=== PATIENT | female | born 1935 | race Caucasian/White ===

== ENCOUNTER 2017-08-11 14:25 | Emergency (ER) | payer OTHER, MEDICAID ==
[2017-08-11] MEDS ORDERED: PHENYLEPHRINE 0.25% NASAL 15 ML SPRAY ONE (14:28)
[2017-08-11 14:35] VITALS: TEMP 97.7
--- NOTE | 2017-08-11 14:35 | EDPHY ---
H & P HPI/ROS: Chief Complaint: Epistaxis HPI: 81-year-old woman with a history of lung cancer on chronic oxygen use from the [facility] started having a nosebleed 4 hr ago. She has had persistent bleeding without control since that time. She does state that she does use a humidifier with her nasal cannula. Denies any foreign body insertion into her nostril. Bleeding is primarily coming out of the front of her nose, she does not believe she is swallowing a lot of blood. Does not have a history of epistaxis in the past. ROS: 10 point Review of Systems is negative except as noted in the HPI. PMH: Lung cancer, oxygen dependent Social History: No smoking, no alcohol, no recreational drug use Family History: non-contributory Physical Exam: Gen: Awake, Alert, No Distress HEENT: Nose: Nasal clamp in place, dry blood in bilateral nares. Eyes: PERRLA, EOMI Mouth: Moist mucosa Neck: Supple, no JVD Ext: no edema, non-tender Skin: no rash Neuro: CN II-XII intact, Sensation grossly intact, Strength 5/5 in bilateral upper and lower extremities Constitutional: Initial Vital Signs Temperature (C) 36.5 C 08/11/17 14:33 Heart Rate 107 H 08/11/17 14:33 Respiratory Rate 22 H 08/11/17 14:33 Blood Pressure 122/76 H 08/11/17 14:33 O2 Sat (%) 68 L 08/11/17 14:33 O2 Delivery Mode Room Air O2 (L/minute) 6 Allergies/Adverse Reactions: paclitaxel [From Taxol] Allergy (Verified 08/11/17 14:33) Home Medications: Medication Instructions Recorded ASPIRIN 08/11/17 Prednisone 08/11/17 Medical Decision Making Procedures: Procedure: Epistaxis control. After verbal consent was obtained, the patient was anesthetized with 4% lidocaine and Lawson-Synephrine. The anterior epistaxis was identified. The patient was treated with silver nitrate cautery. Following the procedure the patient was re-examined and the bleeding was well controlled. The patient tolerated the procedure well. The procedure was performed by myself. Departure - Departure Disposition: Home, Routine, Self-Care Clinical Impression: Acute anterior epistaxis Condition: Good Instructions: Nosebleed (ED) Additional Instructions: Make sure to outweighs used humidified oxygen with your nasal cannula. Follow up with Ear Nose and Throat doctor in 2-3 days for further evaluation. Referrals: Layo Mckeon MD [Medical Doctor] - As per Instructions
[2017-08-11] MEDS ORDERED: LIDOCAINE HCL 4% TOPICAL SOLN 50ML ONE (14:40)
[2017-08-11] MEDS ORDERED: SILVER NITRATE APPLICATOR 1 APPL TP ONE (14:48)
[2017-08-11 15:05] VITALS: RESP 18
[2017-08-11 16:21] VITALS: BP 145/92; PULSE 97; O2SAT 99
--- NOTE | 2017-08-11 16:30 | ASMTLACE ---
DYLAN Acuity / Level of Answers: No Care: Did the patient have an inpatient admission? Comorbidities - select Answers: Any tumor (including all that apply lymphoma or leukemia) # of Emergency department Answers: 1-2 visits in the last 6 months Score: 3 Date Signed: 08/11/2017 04:29 PM Electronically Signed By:Lashell Valles RN
== END 2017-08-11 17:20 | disposition home or self-care (01) ==
PROC: 095KXZZ Destruction of Nasal Mucosa and Soft Tissue, External Approach (ICD-10-PCS; principal; 2017-08-11)
DX: R04.0 Epistaxis (principal); Z79.82 Long term (current) use of aspirin; Z85.118 Personal history of other malignant neoplasm of bronchus and lung

== ENCOUNTER 2017-08-15 02:52 | Inpatient (IN) | payer OTHER, MEDICAID ==
[2017-08-15] MEDS ORDERED: IPRATROPIUM/ALBUTEROL 3 ML DEYVIAL ONE (02:57)
[2017-08-15] MEDS ORDERED: IPRATROPIUM/ALBUTEROL 3 ML DEYVIAL IH ONE (02:59)
[2017-08-15] MEDS ORDERED: NS 500 ML IV ONE (03:01)
--- NOTE | 2017-08-15 03:06 | EDPHY ---
H & P Stated Complaint: Shortness of breath HPI/ROS: HPI The patient presents brought in by ambulance for shortness of breath. She comes in from [facility]. She has a history of non-small cell lung cancer, COPD, requiring about 6 L of O2 via nasal cannula. She was seen in the emergency department a few days ago for epistaxis likely related to her oxygen and has not been wearing it continuously over the last few days. She was noticed to have shortness of breath tonight despite being on 6 L of nasal cannula and was brought into the emergency department. She now is feeling very short of breath and is complaining of chest pain. REVIEW OF SYSTEMS Constitutional: No fever, no chills. Eyes: No discharge. ENT: No sore throat. Cardiovascular: No chest pain, no palpitations. Respiratory: No cough, no shortness of breath. Gastrointestinal: No abdominal pain, no vomiting. Genitourinary: No hematuria. Musculoskeletal: No back pain. Skin: No rashes. Neurological: No headache. PMHx: Non-small cell lung cancer, on Nivolimab until she developed pneumonitis on this, COPD on 6 L nasal cannula lately, resides at [facility] Soc Hx: Resides at [facility], family lives out of town PHYSICAL General Appearance: Alert, in severe respiratory distress Eyes: Pupils equal and round no pallor or injection ENT, Mouth: Mucous membranes dry Respiratory: Tachypneic, retracting, diminished breath sounds throughout right lung field Cardiovascular: Tachycardic rate and regular rhythm Gastrointestinal: Abdomen is soft and non-tender, no masses, bowel sounds normal Neurological: A&O, moves all extremities Skin: Warm and dry, no rashes Musculoskeletal: Neck is supple non tender Extremities: symmetrical, full range of motion Psychiatric: there is no agitation Source: Patient, EMS Exam Limitations: Physical impairment - Medical/Surgical History Hx Asthma: No Hx Chronic Respiratory Disease: Yes Hx Diabetes: No Hx Cardiac Disease: No Hx Renal Disease: No Hx Cirrhosis: No Hx Alcoholism: No Hx HIV/AIDS: No Hx Splenectomy or Spleen Trauma: No Other PMH: lung cancer, dysphagia, cognitive communication deficit - Social History Smoking Status: Former smoker Constitutional: Initial Vital Signs Temperature (C) 36.5 C 08/15/17 03:00 Heart Rate 122 H 08/15/17 03:00 Respiratory Rate 24 H 08/15/17 03:00 Blood Pressure 172/137 H 08/15/17 03:00 O2 Sat (%) 75 L 08/15/17 03:00 O2 Delivery Mode Bi-Pap O2 (L/minute) 15 Allergies/Adverse Reactions: paclitaxel [From Taxol] Allergy (Verified 08/15/17 02:57) Home Medications: Medication Instructions Recorded ASPIRIN 08/11/17 Prednisone 08/11/17 Medical Decision Making - Diagnostics EKG Interpretation: EKG: Complete interpretation has been separately recorded in the [facility] archive. Summary impression: Sinus tachycardia, right axis deviation Imaging Results: Chest x-ray one view demonstrates right-sided pneumothorax, patchy infiltrates bilaterally, interpreted by me, radiology interpretation pending. Repeat chest x-ray shows re-expansion of right lung. CT scan of chest with IV contrast demonstrates small residual pneumothorax, bilateral infiltrates, discussed with Dr. Keys of Radiology. Imaging: Discussed imaging studies w/ house calls nurse Radiologist, I viewed and interpreted images myself Differential Diagnosis: This is an 81-year-old female who presents brought in by ambulance from [facility] in respiratory distress and hypoxia. Past medical history includes COPD on 6 L home O2, non-small cell lung cancer, currently not on chemotherapy that I can tell. On arrival, her sats are in the low 80s, she is tachypneic and uncomfortable appearing. She is started on supplemental oxygen via facemask with nebulizer treatments without much improvement in her symptoms. She was transitioned to BiPAP. She was given steroids and additional nebulizer treatments. Chest x-ray was performed and demonstrates 50-60% right-sided pneumothorax. Because of this, I consulted with Dr. Mathews of General surgery who came to the emergency department emergently placed a Heimlich valve chest tube with improvement in the patient's symptoms. CT scan was performed shortly thereafter which demonstrates bilateral infiltrates and small residual pneumothorax. Labs demonstrated elevated white blood cell count and given these infiltrates we will treat her for healthcare associated pneumonia with cefepime and vancomycin. PCO2 is very high at 70, this is likely related to her COPD and respiratory distress. After the chest tube was placed, we were able to transition the patient back to her usual 6 L of oxygen with sats in the low 90s. She is no longer tachypneic and feeling much better able to speak short sentences. Critical Care Time: CRITICAL CARE Critical care time spent by me, Dr. Villeda, exclusively with this patient was 45 minutes, exclusive of PA time and exclusive of procedures. The organ system at risk was respiratory and I gave IV fluids, antibiotics, nebulizer treatments , BiPAP, consulted with surgery to placed chest tube, transferred patient to the ICU to prevent worsening of the patients condition. - Data Points Laboratory Results: Laboratory Results 08/15/17 03:10 08/15/17 03:10 08/15/17 08/15/17 08/15/17 03:40 03:30 03:10 WBC RBC Hgb Hct MCV MCH MCHC RDW Plt Count MPV Neut % (Auto) Lymph % (Auto) [place] % (Auto) Eos % (Auto) Baso % (Auto) Nucleat RBC Rel Count Absolute Neuts (auto) Absolute Lymphs (auto) Absolute Monos (auto) Absolute Eos (auto) Absolute Basos (auto) Absolute Nucleated RBC Immature Gran % Seg Neutrophils % Band Neutrophils % Lymphocytes % Monocytes % Eosinophils % Metamyelocytes % Immature Gran # Absolute Seg Neuts Absolute Band Neuts Absolute Lymphocytes Absolute Monocytes Absolute Eosinophils Absolute Metamyelocyte Atypical Lymphocytes Platelet Estimate Smear Review By Puncture Site RIGHT RADIAL Patient Temperature 36.5 DEGREES DEGREES pCO2 74 mmHg H* mmHg (34-38) pO2 83 mmHg H mmHg (65-75) Total CO2 36 mEq/L H mEq/L (23-27) ABG pH 7.28 L (7.35-7.45) ABG PO2/FiO2 Ratio 83 RATIO RATIO ABG HCO3 34 mEq/L H mEq/L (22-26) ABG O2 Saturation 94 % % (92-95) ABG Base Excess 4.8 mEq/L H mEq/L (-2.5-2.5) ABG Lactic Acid 0.8 mmol/L mmol/L (0.5-1.6) O2 Concentration % 100 % % (0-100) Expiratory Pressure 6 Inspiratory Pressure 16 Mode BiPAP YES Sodium 141 mEq/L mEq/L (135-145) Potassium 4.5 mEq/L mEq/L (3.5-5.2) Chloride 99 mEq/L mEq/L (97-110) Carbon Dioxide 35 mEq/l H mEq/l (22-31) Anion Gap 7 mEq/L L mEq/L (8-16) BUN 23 mg/dL mg/dL (7-23) Creatinine 0.8 mg/dL mg/dL (0.6-1.0) Estimated GFR > 60 Glucose 134 mg/dL H mg/dL (70-100) Calcium 10.0 mg/dL mg/dL (8.5-10.4) Troponin I < 0.012 ng/mL ng/mL (0.000-0.034) NT-Pro-B Natriuret Pep 174 pg/mL pg/mL (0-450) Nasal Influenza A PCR NEGATIVE FOR FLU A (NEGATIVE) Nasal Influenza B PCR NEGATIVE FOR FLU B (NEGATIVE) RSV (PCR) NEGATIVE FOR RSV (NEGATIVE) 08/15/17 03:10 WBC 20.67 10^3/uL H 10^3/uL (3.80-9.50) RBC 4.33 10^6/uL 10^6/uL (4.18-5.33) Hgb 12.8 g/dL g/dL (12.6-16.3) Hct 41.1 % % (38.0-47.0) MCV 94.9 fL fL (81.5-99.8) MCH 29.6 pg pg (27.9-34.1) MCHC 31.1 g/dL L g/dL (32.4-36.7) RDW 14.3 % % (11.5-15.2) Plt Count 320 10^3/uL 10^3/uL (150-400) MPV 9.4 fL fL (8.7-11.7) Neut % (Auto) Not Reported Lymph % (Auto) Not Reported [place] % (Auto) Not Reported Eos % (Auto) Not Reported Baso % (Auto) Not Reported Nucleat RBC Rel Count 0.0 % % (0.0-0.2) Absolute Neuts (auto) Not Reported Absolute Lymphs (auto) Not Reported Absolute Monos (auto) Not Reported Absolute Eos (auto) Not Reported Absolute Basos (auto) Not Reported Absolute Nucleated RBC 0.00 10^3/uL 10^3/uL (0-0.01) Immature Gran % Not Reported Seg Neutrophils % 54 % % Band Neutrophils % 13 % % Lymphocytes % 20 % % Monocytes % 10 % % Eosinophils % 2 % % Metamyelocytes % 1 % % Immature Gran # Not Reported Absolute Seg Neuts 11.16 10^/uL H 10^/uL (1.70-6.50) Absolute Band Neuts 2.69 10^3/uL H 10^3/uL (0.00-0.70) Absolute Lymphocytes 4.13 10^3/uL H 10^3/uL (1.00-3.00) Absolute Monocytes 2.07 10^3/uL H 10^3/uL (0.30-0.80) Absolute Eosinophils 0.41 10^3/uL H 10^3/uL (0.03-0.40) Absolute Metamyelocyte 0.21 10^3/mL H 10^3/mL (0.00-0.00) Atypical Lymphocytes 1+ H Platelet Estimate ADEQUATE (ADEQ) Smear Review By Pending Puncture Site Patient Temperature pCO2 pO2 Total CO2 ABG pH ABG PO2/FiO2 Ratio ABG HCO3 ABG O2 Saturation ABG Base Excess ABG Lactic Acid O2 Concentration % Expiratory Pressure Inspiratory Pressure Mode BiPAP Sodium Potassium Chloride Carbon Dioxide Anion Gap BUN Creatinine Estimated GFR Glucose Calcium Troponin I NT-Pro-B Natriuret Pep Nasal Influenza A PCR Nasal Influenza B PCR RSV (PCR) Medications Given: Vancomycin/Sodium Chloride (Vancomycin 1 Gm (Premix)) 250 mls @ 250 mls/hr IV EDNOW ONE PRN Reason: Protocol Stop: 08/15/17 05:38 Last Admin: 08/15/17 04:55 Dose: 250 mls Discontinued Medications Albuterol/Ipratropium (Duoneb) 3 ml IH EDNOW ONE Stop: 08/15/17 03:00 Last Admin: 08/15/17 03:00 Dose: 3 ml Sodium Chloride (Ns) 500 mls @ 1,000 mls/hr IV EDNOW ONE PRN Reason: Protocol Stop: 08/15/17 03:30 Last Admin: 08/15/17 03:32 Dose: 500 mls Cefepime HCl 2 gm/ Sterile (Water) 12.5 mls @ 150 mls/hr IV EDNOW ONE PRN Reason: Protocol Stop: 08/15/17 03:15 Last Admin: 08/15/17 04:03 Dose: 12.5 mls Sodium Chloride (Ns) 1,000 mls @ 0 mls/hr IV EDNOW ONE; Wide Open PRN Reason: Protocol Stop: 08/15/17 04:27 Last Admin: 08/15/17 04:31 Dose: 1,000 mls Methylprednisolone Sodium Succinate (Solu-Medrol) 125 mg IVP EDNOW ONE Stop: 08/15/17 03:13 Last Admin: 08/15/17 03:25 Dose: 125 mg Departure - Departure Disposition: [facility] Inpatient Acute Clinical Impression: Chronic obstructive pulmonary disease with acute exacerbation, Pneumothorax on right, Non-small cell cancer of left lung Pneumonia Qualifiers: Pneumonia type: due to unspecified organism Laterality: bilateral Lung location : unspecified part of lung Qualified Code(s): J18.9 - Pneumonia, unspecified organism Condition: Critical Referrals: ALETA LARIOS [Other] - As per Instructions
[2017-08-15] MEDS ORDERED: CEFEPIME HCL 2 GM in STERILE WATER INJ 12.5 ML IV ONE (03:11)
[2017-08-15] MEDS ORDERED: methylPREDNISolone SOD SUCC 125 MG/2 ML VIAL IVP ONE (03:12)
--- NOTE | 2017-08-15 03:17 | CPEKG ---
Heart Rate: 120 RR Interval: 500 P-R Interval: 164 QRSD Interval: 94 QT Interval: 296 QTC Interval: 419 P [place]: 89 QRS [place]: 81 T Wave [place]: 103 EKG Severity - ABNORMAL ECG - EKG Impression: SINUS TACHYCARDIA EKG Impression: BORDERLINE RIGHT AXIS DEVIATION EKG Impression: CONSIDER LEFT VENTRICULAR HYPERTROPHY EKG Impression: ANTERIOR Q WAVES, POSSIBLY DUE TO LVH Electronically Signed By: Li Villeda 15-Aug-2017 06:43:02
[2017-08-15 03:19] LABS: PLATELET COUNT 320 10^3/uL (150-400)
[2017-08-15] MEDS ORDERED: IOPAMIDOL (ISOVUE-300) 100 ML BTL ONE (03:37)
[2017-08-15] MEDS ORDERED: HYDROmorphONE/DILAUDID 1 MG/ML INJ IVP ONE (04:12)
[2017-08-15] MEDS ORDERED: NS 1,000 ML IV ONE (04:26)
--- NOTE | 2017-08-15 04:34 | POSTOPPROG ---
Post Op Note Date of Operation: 08/15/17 Surgeon: Daniel Mathews Anesthesia: Local (Specify) (1% lidocaine, 8cc) Pre-op Diagnosis: spontaneous right PTX, 60% with low Sats Post-op Diagnosis: spontaneous right PTX with re-expansion by CXR Indication: spontaneous right PTX, 60% with low Sats Procedure: placement of a right pneumathorax tube Findings: spontaneous right PTX, 60% with low Sats Inf/Abcess present in the surg proc area at time of surgery?: No EBL: Minimal Complications: none Specimen(s): none
[2017-08-15] MEDS ORDERED: VANCOMYCIN HCL/NORMAL SALINE 250 ML IV ONE (04:39)
[2017-08-15] MEDS ORDERED: ACETAMINOPHEN 325 MG TAB PO PRN ×2 (04:39→11:30)
[2017-08-15] MEDS ORDERED: ONDANSETRON DISINTEGRATING 4 MG TAB PO PRN (04:39)
[2017-08-15] MEDS ORDERED: ONDANSETRON 4 MG/2 ML VIAL IVP PRN (04:39)
[2017-08-15] MEDS ORDERED: ALBUTEROL 3 ML DEYVIAL IH PRN (04:39)
--- NOTE | 2017-08-15 05:25 | GOP ---
[f rep st] OPERATIVE REPORT DATE OF OPERATION: SURGEON: Daniel Mathews MD PREOPERATIVE DIAGNOSIS: 60% right pneumothorax, spontaneous. POSTOPERATIVE DIAGNOSIS: 60% right pneumothorax, spontaneous. Complete re- expansion of the lung. PROCEDURE PERFORMED: Placement of a pneumothorax tube, right chest over the 2nd rib. FINDINGS: 60% right pneumothorax, spontaneous. Complete re-expansion of the lung. DESCRIPTION OF PROCEDURE: The patient was placed in a sitting position at approximately 45 degrees. The right chest was anteriorly carefully prepped and draped. Note that she is requiring CPAP to oxygenate marginally. This was done as an emergent procedure. A sterile field is developed. The skin is anesthetized with 1% Xylocaine over the 2nd rib. A tract is continued over the surface of the 2nd rib and the tract is anesthetized again with 1% Xylocaine. The skin is sharply incised. A pneumothorax tube was carefully advanced over the rib. It is connected to a stopcock and the Heimlich valve setup. It was sutured to the skin level with a 2-0 silk suture. A second suture was used to the anterior chest wall. A sterile dressing using Tegaderm was placed. A chest x-ray shows re-expansion of the lung. She will go to CAT scan for followup film to address her other pulmonary pathology. Required oxygen support is greatly diminished at this time. A CT is pending to elucidate the rest of her pulmonary pathology. /[id number]/MODL MTDD
--- NOTE | 2017-08-15 05:26 | PDGENHP ---
History and Physical - Chief Complaint Dyspnea - History of Present Illness 81 yo F w/ hx of COPD and NSCLC presents from [facility] via EMS with shortness of breath. Patient states that she was in her usual state of health until tonight when she was woken from sleep by acute shortness of breath and R- sided chest pain. EMS was called and she was noted to be hypoxic while on her baseline 6 L/min via NC. Upon arrival in the ED she was found to have a R-sided pneumothorax as well as diffuse bilateral infiltrates. A right sided chest tube was placed with improvement in symptoms. Patient is currently only complaining of some pain at the site of the chest tube. At this time she is stable on her home 6 L/min. She denies any symptoms of infection prior to tonight. History Information - Allergies/Home Medication List Allergies/Adverse Reactions: paclitaxel [From Taxol] Allergy (Verified 08/15/17 02:57) Home Medications: ASPIRIN 08/11/17 [Last Taken Unknown] Prednisone 08/11/17 [Last Taken Unknown] I have personally reviewed and updated: family history, medical history (3) - Past Medical History cancer (NSCLC), COPD - Family History Additional family history: Asked, denies - Social History Smoking Status: Former smoker Review of Systems Review of Systems: ROS: 10pt was reviewed & negative except for what was stated in HPI & below Physical Exam Physical Exam: Temp Pulse Resp BP Pulse Ox 36.6 C 110 H 18 113/68 93 08/15/17 05:15 08/15/17 05:15 08/15/17 05:15 08/15/17 05:15 08/15/17 05:15 O2 (L/minute) 6 FIO2 (%) 100 Constitutional: no apparent distress, chronically ill appearing Eyes: PERRL, EOMI Ears, Nose, Mouth, Throat: moist mucous membranes, no oral mucosal ulcers Cardiovascular: regular rate and rhythym, systolic murmur Respiratory: no respiratory distress, inspiratory crackles, rhonchi Gastrointestinal: normoactive bowel sounds, soft, non-tender abdomen Skin: warm, normal color Musculoskeletal: full muscle strength, no muscle tenderness Neurologic: sensation intact bilaterally, CN II-XII Intact Psychiatric: interacting appropriately, not anxious Lab Data & Imaging Review 08/15/17 03:10 08/15/17 03:10 WBC 20.67 10^3/uL (3.80-9.50) H 08/15/17 03:10 RBC 4.33 10^6/uL (4.18-5.33) 08/15/17 03:10 Hgb 12.8 g/dL (12.6-16.3) 08/15/17 03:10 Hct 41.1 % (38.0-47.0) 08/15/17 03:10 MCV 94.9 fL (81.5-99.8) 08/15/17 03:10 MCH 29.6 pg (27.9-34.1) 08/15/17 03:10 MCHC 31.1 g/dL (32.4-36.7) L 08/15/17 03:10 RDW 14.3 % (11.5-15.2) 08/15/17 03:10 Plt Count 320 10^3/uL (150-400) 08/15/17 03:10 MPV 9.4 fL (8.7-11.7) 08/15/17 03:10 Neut % (Auto) Not Reported 08/15/17 03:10 Lymph % (Auto) Not Reported 08/15/17 03:10 [place] % (Auto) Not Reported 08/15/17 03:10 Eos % (Auto) Not Reported 08/15/17 03:10 Baso % (Auto) Not Reported 08/15/17 03:10 Nucleat RBC Rel Count 0.0 % (0.0-0.2) 08/15/17 03:10 Absolute Neuts (auto) Not Reported 08/15/17 03:10 Absolute Lymphs (auto) Not Reported 08/15/17 03:10 Absolute Monos (auto) Not Reported 08/15/17 03:10 Absolute Eos (auto) Not Reported 08/15/17 03:10 Absolute Basos (auto) Not Reported 08/15/17 03:10 Absolute Nucleated RBC 0.00 10^3/uL (0-0.01) 08/15/17 03:10 Immature Gran % Not Reported 08/15/17 03:10 Seg Neutrophils % 54 % 08/15/17 03:10 Band Neutrophils % 13 % 08/15/17 03:10 Lymphocytes % 20 % 08/15/17 03:10 Monocytes % 10 % 08/15/17 03:10 Eosinophils % 2 % 08/15/17 03:10 Metamyelocytes % 1 % 08/15/17 03:10 Immature Gran # Not Reported 08/15/17 03:10 Absolute Seg Neuts 11.16 10^/uL (1.70-6.50) H 08/15/17 03:10 Absolute Band Neuts 2.69 10^3/uL (0.00-0.70) H 08/15/17 03:10 Absolute Lymphocytes 4.13 10^3/uL (1.00-3.00) H 08/15/17 03:10 Absolute Monocytes 2.07 10^3/uL (0.30-0.80) H 08/15/17 03:10 Absolute Eosinophils 0.41 10^3/uL (0.03-0.40) H 08/15/17 03:10 Absolute Metamyelocyte 0.21 10^3/mL (0.00-0.00) H 08/15/17 03:10 Atypical Lymphocytes 1+ H 08/15/17 03:10 Platelet Estimate ADEQUATE (ADEQ) 08/15/17 03:10 Puncture Site RIGHT RADIAL 08/15/17 03:30 Patient Temperature 36.5 DEGREES 08/15/17 03:30 pCO2 74 mmHg (34-38) H* 08/15/17 03:30 pO2 83 mmHg (65-75) H 08/15/17 03:30 Total CO2 36 mEq/L (23-27) H 08/15/17 03:30 ABG pH 7.28 (7.35-7.45) L 08/15/17 03:30 ABG PO2/FiO2 Ratio 83 RATIO 08/15/17 03:30 ABG HCO3 34 mEq/L (22-26) H 08/15/17 03:30 ABG O2 Saturation 94 % (92-95) 08/15/17 03:30 ABG Base Excess 4.8 mEq/L (-2.5-2.5) H 08/15/17 03:30 ABG Lactic Acid 0.8 mmol/L (0.5-1.6) 08/15/17 03:30 O2 Concentration % 100 % (0-100) 08/15/17 03:30 Expiratory Pressure 6 08/15/17 03:30 Inspiratory Pressure 16 08/15/17 03:30 Mode BiPAP YES 08/15/17 03:30 Sodium 141 mEq/L (135-145) 08/15/17 03:10 Potassium 4.5 mEq/L (3.5-5.2) 08/15/17 03:10 Chloride 99 mEq/L (97-110) 08/15/17 03:10 Carbon Dioxide 35 mEq/l (22-31) H 08/15/17 03:10 Anion Gap 7 mEq/L (8-16) L 08/15/17 03:10 BUN 23 mg/dL (7-23) 08/15/17 03:10 Creatinine 0.8 mg/dL (0.6-1.0) 08/15/17 03:10 Estimated GFR > 60 08/15/17 03:10 Glucose 134 mg/dL (70-100) H 08/15/17 03:10 Calcium 10.0 mg/dL (8.5-10.4) 08/15/17 03:10 Troponin I < 0.012 ng/mL (0.000-0.034) 08/15/17 03:10 NT-Pro-B Natriuret Pep 174 pg/mL (0-450) 08/15/17 03:10 Nasal Influenza A PCR NEGATIVE FOR FLU A (NEGATIVE) 08/15/17 03:40 Nasal Influenza B PCR NEGATIVE FOR FLU B (NEGATIVE) 08/15/17 03:40 RSV (PCR) NEGATIVE FOR RSV (NEGATIVE) 08/15/17 03:40 Imaging Review: 1. CT Prelim: extensive bilat infiltrates emphysema small residual right ptx raguzzi 4:30 am Visualized and Interpreted EKG results: Yes EKG Interpretation: Positive for: other (R-sided pneumothorax, diffuse bilateral infiltrates) Assessment & Plan Assessment: 81 yo F w/ COPD and NSCLC presents with spontaneous R-sided pneumothorax now s/ p chest tube. Plan: 1. R pneumothorax - Seemingly spontaneous with onset during sleep in the setting COPD and NSCLC. Patient denies any symptoms of infection prior to onset of acute dyspnea while sleeping. Patient presented in acute respiratory distress but this resolved with placement of chest tube. - Chest tube in place - Admit to ICU for observation - Will repeat CXR at 12:00 to monitor progression 2. Diffuse, bilateral pulmonary infiltrates - Most likely pneumonitis resulting from Nivolumab therapy. Per review of [facility] records (available in [facility]), CXR appearance has not changed much since at least 12/21 study. - Continue prednisone 30 mg qD 3. Leukocytosis - Seems to be chronically elevated, perhaps from pneumonitis and chronic prednisone therapy. Review of records reveals WBC of 16 on outpatient labs from 08/07. WBC of 20 on admission today in the setting of pneumothorax. - S/p Vanc, Cefepime in ED - Will observe off of antibiotics noting lack of infectious symptoms - Obtain blood cultures, procalcitonin, flu test 4. Non-small cell lung cancer (T2bN1 stage IIB squamous, locally recurrent) - Nivolumab has been discontinued due to pneumonitis. She has not received alternative systemic therapy since Mar 2017. Followed by Dr. Raeann Andrade at [facility]. 5. COPD - On 6 L/min O2 continuously as outpatient. She is currently stable on 6 L and has no audible wheezing on my exam. - Duonebs PRN Diet - Regular Code - Full per MOST form Ppx - SCDs noting chest tube placement, otherwise indicated for LMWH 2/2 malignancy Dispo - Admit to ICU under observation status noting rapid improvement with chest tube
[2017-08-15] MEDS ORDERED: IPRATROPIUM/ALBUTEROL 3 ML DEYVIAL IH PRN (05:50)
[2017-08-15] MEDS ORDERED: predniSONE 10 MG TAB PO SCH (09:00)
--- NOTE | 2017-08-15 11:00 | WOCRNPDOC ---
IVETTE Advanced Assessment Note - Skin Integrity Problem, Advanced Assess Right Lateral Sacrum Pressure Injury Dressing Type: Allevyn Life Dressing Description: Clean/Dry, Intact Exudate Amount: None Integumentary Issue Intervention: Visualized Under Dressing Maria Wound Tissue: Intact Wound Bed Color: [place], Yellow Wound Bed Constitution: Draining Serous Blister (no longer draining, roof intact ) Site Measurement - Head-to-Toe Length X Width X Depth (cm): 1.3x1.7xdrained blister Pressure Injury Stage: Stage 2 Pressure Injury Present on Admit: Yes Skin Integrity Problem Comment: Patient rolled to her right side unassisted. Allevyn pulled back to reveal several areas of redness. In particular, this wound appears to have once been a serous filled blister that has since drained. Roof remains intact and skin is dry. Will implement measures to protect the area. Wound care will round again next week to monitor progress. Left Gluteal Cleft Dressing Type: Allevyn Life Dressing Description: Clean/Dry, Intact Integumentary Issue Intervention: Visualized Under Dressing Maria Wound Tissue: Intact Wound Bed Color: [place] Wound Bed Constitution: Smooth Tissue Wound Edges: Well Defined Site Measurement - Head-to-Toe Length X Width X Depth (cm): 1x1.4x0.1 Skin Integrity Problem Comment: Patient rolled to her right side unassisted. Allevyn pulled back to reveal several areas of redness including this partial thickness opening. Wound is not directly over a bony prominance so is not likely pressure related but more likely related to moisture and friction. Coccyx Dressing Type: Allevyn Life Dressing Description: Clean/Dry, Intact Skin Integrity Problem Comment: Coccyx prominent through skin. Redness noted at this time but blanching and skin intact. Allevyn placed to protect area. Will implement pressure relieving measures.
[2017-08-15] MEDS ORDERED: MAGNESIUM HYDROXIDE 30 ML UDCUP PO PRN (11:30)
[2017-08-15] MEDS: ALBUTEROL 3 ML DEYVIAL IH SCH ×3 (11:57→20:36)
[2017-08-15] MEDS ORDERED: CEFEPIME HCL 2 GM in STERILE WATER INJ 12.5 ML IV SCH (12:00)
[2017-08-15] MEDS: cefTRIAXone 1 GM in STERILE WATER INJ 10 ML IV SCH (12:07)
[2017-08-15] MEDS: AZITHROMYCIN IV 500 MG in D5W 250 ML IV SCH (12:10)
--- NOTE | 2017-08-15 12:29 | ASMTCMCOM ---
CM Note CM Note Notes: Patient admitted after she called 911 after being woken from sleep by acute SOB and R sided chest pain. She was found to have a R sided pneumothorax that was relieved by a R sided chest tube. She is now resting comfortably in the ICU on 6L O2. I spoke with both patient's son Paulino ([facility] - [phone] ) and daughter Devante ([phone]). Per Paulino, patient has been at [facility] since late May 2017. He thinks it was a doctor at [facility] who had her sent there to manage her O2 needs. Paulino says that before that, they have been living in [facility] in [place] for the past 4 years. The patient and both of her children feel she is getting suboptimal care at [facility], and daughter Devante states she is trying to get the patient to [place] where she lives. She says that a [employer] at has said he'd help with this transfer, including a medical flight, but I advised Devante that patient would likely not qualify for this. I encouraged Devante and Paulino to make a plan together, and that the best option would be for one of them to accompany patient to [place]. If they are unable to formulate a plan, we will have to send patient back to [facility] or another SNF. To my knowledge, she does not have alf Medicaid, and I have placed two calls to [facility] to see how much of her insurance benefits she has used. A PT eval has been ordered. CM will follow; discharge plan TBD Date Signed: 08/15/2017 12:28 PM Electronically Signed By:Apryl Celestin RN
[2017-08-15] MEDS: ENOXAPARIN 40 MG/0.4 ML SYR SC SCH (12:35)
--- NOTE | 2017-08-15 13:08 | SOAPPROG ---
SOAP Progress Note Assessment/Plan: PAD#0 08/15/17 13:05 Assessment: Lung essentially re-expanded. trace air leak noted Plan: FU cxr in AM tube to remain in place until no air leak for 24 hours and pneumonic process stable 08/15/17 13:07 Subjective: no complaints Objective: Vital Signs Temp Pulse Resp BP Pulse Ox 36.6 C 103 H 24 H 135/64 H 92 08/15/17 06:00 08/15/17 10:00 08/15/17 10:00 08/15/17 10:00 08/15/17 10:00 08/14/17 08/15/17 08/16/17 05:59 05:59 05:59 Intake Total 1500 Balance 1500 Physical Exam - Physical Exam Respiratory: other (minimal air leak) ICD10 Worksheet Patient Problems: Problems Problem Status Onset Chronic obstructive pulmonary disease with acute exacerbation Acute Non-small cell cancer of left lung Acute Pneumonia Acute Pneumothorax on right Acute
--- NOTE | 2017-08-15 13:52 | GCON ---
[f rep st] CONSULTATION PULMONARY CRITICAL CARE CONSULTATION. DATE OF CONSULTATION: 08/15/2017 REASON FOR CONSULTATION: Pneumonia, emphysema. HISTORY: The patient is an 81-year-old, with known COPD and emphysema. She is a resident of [facility] and is originally from [place], here for a year or so, secondary to her son being out here. I do not know when she was admitted to [facility], and the patient could not remember. Anyway, she has a history of significant tobacco abuse. She smoked for many years, having started when she was young, and states she quit in 2003. She is on oxygen at [facility], possibly at 6 L. She is also on prednisone and DuoNeb. She was recently hospitalized by report at [facility]. I do not currently have records from that hospitalization. She did have diffuse pulmonary infiltrates as well there. She does have a history of non small cell lung cancer and has been on immunotherapy with Nivolumab, and could have pneumonitis secondary to this drug. She apparently awoke last night with shortness of breath and right-sided chest pain. The paramedics were called. She was brought to the emergency department. She was found to have a spontaneous pneumothorax. A small bore chest tube was placed. Chest x-ray showed diffuse pulmonary infiltrates. A CT with contrast was done. The lung was well expanded. Bilateral diffuse pulmonary infiltrates were present. Centrilobular emphysema is present. She was given ceftriaxone and vancomycin, along with 125 mg of Solu-Medrol in the ED , and admitted to the intensive care unit. PAST MEDICAL HISTORY: Remarkable for her COPD and emphysema. Listed medications are as above. Her only other medication is a baby aspirin. She denies known heart disease, previous thromboembolic disease, problems with her stomach or reflux, chronic kidney disease, etc. SOCIAL HISTORY: The patient is from [place]. She is a resident of [facility]. Tobacco is as noted in the HPI. She is no longer smoking. Alcohol is denied. FAMILY HISTORY: Noncontributory, unknown at this time. REVIEW OF SYSTEMS: A 10-point review of systems is negative except as noted above. PHYSICAL EXAMINATION: GENERAL: An elderly woman who has somewhat poor memory. She is lying in bed, appears comfortable. VITAL SIGNS: Oxygen is in place at 6 L. Saturations are 92%. Respiratory rate is approximately 25. Blood pressure 135/64, heart rate 100, with sinus rhythm on the monitor. She is afebrile. HEENT: Unremarkable for lymphadenopathy or thyromegaly. There is no jugular venous distention. Mucous membranes are slightly dry. CHEST: Decreased breath sounds bilaterally with bilateral rales, most prominent at the bases. There is a rub on the right side. A small bore chest tube is in place. This is hooked to a Heimlich valve. No air leak was present earlier today. The heart is tachycardic. There is a systolic murmur. P2 appears to be increased. ABDOMEN: Soft, nontender. Bowel sounds are present. EXTREMITIES: Remarkable for trace edema. NEUROLOGIC: Nonfocal, regarding motor and sensory. The patient is oriented to person, place, and February. Recent event memory is poor. She states she does not want to go back to [facility]. DATABASE: Radiologic studies are as noted above. Pneumothorax was present on admission, resolved with the placement of a small bore chest tube. CT scan of the chest showed a small residual pneumothorax and diffuse bilateral pulmonary infiltrates. Laboratory: White blood cell count is 20,000, hematocrit 41, platelets 321, 000. Arterial blood gas postadmission showed a pH of 7.32, pCO2 of 59, and pO2 of 112. This was on 6 L. A previous blood gas showed a pCO2 of 74 on BiPAP. This was from the emergency department. Sodium is 141, potassium 4.5, CO2 of 35 , anion gap 7, BUN 23, creatinine 0.8, glucose 134, calcium 10. Troponin and BNP were both negative. Procalcitonin was normal. Influenza A/B by PCR was negative. RSV was negative. ASSESSMENT: 1. Diffuse bilateral pulmonary infiltrates, possible consistent with a diffuse atypical pneumonia. An underlying component of pneumonitis and/or postinflammatory pulmonary fibrosis is also likely present. Blood cultures have been obtained. Sputum culture will be requested; however, she is not bringing up much in the way of mucus at this point in time. She will be covered with ceftriaxone and azithromycin for now. 2. Chronic obstructive pulmonary disease/emphysema, with exacerbation. She will be given Solu-Medrol 40 mg IV q.8 hours initially, routine DuoNeb, and antibiotics as above. 3. Spontaneous pneumothorax. Present on the right side. A small bore chest tube has been placed anteriorly with good re-expansion of the lung. Followup chest x-ray is pending. She has a Heimlich valve in place without an obvious air leak at this time. If needed, she can be hooked to continuous suction by a Pleur-evac. 4. History of non small cell lung cancer, on immunochemotherapy recently 5. Metabolic. No issues currently identified. 6. Deep venous thrombosis prophylaxis: Enoxaparin will be started. 7. Gastrointestinal prophylaxis. Pepcid will be given orally. Once eating, this can be discontinued. 8. Mild dementia. This appears to be present. However, her mental status changes may also be secondary to acute illness. 9. Disposition. We will need to address this during the hospitalization. She seems fairly adamant about not wanting to go back to [facility]. PLAN AND RECOMMENDATIONS: The patient will be kept in the intensive care unit. Antibiotics will be given as above. DuoNeb and Solu-Medrol will be continued. A sputum culture will be obtained. Chest x-ray will be followed. Chest tube will be kept to the Heimlich valve. Laboratory will be followed. Bedside swallow evaluation will be requested. Prognosis. Seems relatively good at this point in time. However, her infiltrates are quite impressive, and it is possible that these will progress, despite appropriate therapy, and the patient end up intubated, on the ventilator. She is full code per advanced directives. Issues will be discussed with her daughter in [place]. Further plans/recommendations will be made based on her progress over the next 12-24 hours. /[id number]/MODL MTDD
[2017-08-15] MEDS: NS 1,000 ML IV SCH (14:00)
[2017-08-15] MEDS: methylPREDNISolone SOD SUCC 40 MG/ML VIAL IVP SCH ×2 (14:53→21:55)
--- NOTE | 2017-08-15 16:19 | HOSPPROG ---
Hospitalist Progress Note Assessment/Plan: * Spontaneous PTX -repeat CXR in am -remove chest tube when no air leak for 24 hours * Bilateral pulmonary infiltrates - pneumonitis from immunotherapy vs. PNA -on Ceftriaxone, azithro -IV steroids * Lung cancer -immunotherapy on hold due to pneumonitis * Chronic respiratory failure - baseline 6L O2 * COPD exacerbation -steroids, nebs Subjective: No complaints Objective: Vital Signs Temp Pulse Resp BP Pulse Ox 36.2 C 99 36 H 117/66 90 L 08/15/17 16:04 08/15/17 16:00 08/15/17 16:00 08/15/17 16:00 08/15/17 16:00 Microbiology 08/15/17 12:48 - Final Sputum, Expectorated 08/14/17 08/15/17 08/16/17 05:59 05:59 05:59 Intake Total 1500 Balance 1500 d/w Dr. Mike Hanson - he will reviewed imaging regarding infection vs pneumonitis tele - sinus tachy Laboratory Tests 08/15/17 03:10 WBC 20.67 H Hct 41.1 Plt Count 320 - Physical Exam Constitutional: no apparent distress, appears nourished, not in pain Cardiovascular: regular rate and rhythym, no murmur, rub, or gallop Respiratory: no respiratory distress, expiratory wheeze, inspiratory crackles, No rhonchi Gastrointestinal: normoactive bowel sounds, soft, non-tender abdomen, no palpable masses Skin: no rashes or abrasions, no fluctuance, no induration Neurologic: weakness Psychiatric: encephalopathic, poor insight, poor judgement ICD10 Worksheet Patient Problems: Problems Problem Status Onset Chronic obstructive pulmonary disease with acute exacerbation Acute Non-small cell cancer of left lung Acute Pneumonia Acute Pneumothorax on right Acute
[2017-08-15] MEDS: FAMOTIDINE 20 MG TAB PO SCH (19:42)
[2017-08-16 04:33] LABS: PLATELET COUNT 237 10^3/uL (150-400)
[2017-08-16] MEDS: NS 1,000 ML IV SCH ×2 (04:56→18:29)
[2017-08-16] MEDS: methylPREDNISolone SOD SUCC 40 MG/ML VIAL IVP SCH ×2 (05:01→13:56)
[2017-08-16] MEDS: ALBUTEROL 3 ML DEYVIAL IH SCH ×4 (05:15→20:22)
[2017-08-16] MEDS: AZITHROMYCIN IV 500 MG in D5W 250 ML IV SCH (08:33)
--- NOTE | 2017-08-16 08:37 | SOAPPROG ---
SOAP Progress Note Assessment/Plan: Chest tube day#1 08/15/17 13:05 Assessment: Lung essentially re-expanded. trace air leak noted Plan: FU cxr in AM tube to remain in place until no air leak for 24 hours and pneumonic process stable 08/16/17 08:32 Chest tube day #2 Assessment: Lung up but air leak (small) continues. Plan: IF PTX enlarges or air leak increases, will add pleurovac CXR in AM Subjective: no complaints regarding chest tube Objective: Vital Signs Temp Pulse Resp BP Pulse Ox 36.7 C 92 23 H 142/79 H 96 08/16/17 07:53 08/16/17 07:53 08/16/17 07:53 08/16/17 07:53 08/16/17 07:53 Microbiology 08/15/17 13:40 Respiratory Panel (PCR) - Final Nasal, Sinus - Swab Coronavirus Nl63 Detected Laboratory Results 08/16/17 04:03 08/16/17 04:03 08/15/17 08/16/17 08/17/17 05:59 05:59 05:59 Intake Total 1670 Output Total 1050 Balance 620 - Time Spent With Patient Time Spent With Patient: 15 Physical Exam - Physical Exam General Appearance: alert, no apparent distress Respiratory: crackles, rhonchi (very small air leak) ICD10 Worksheet Patient Problems: Problems Problem Status Onset Chronic obstructive pulmonary disease with acute exacerbation Acute Non-small cell cancer of left lung Acute Pneumonia Acute Pneumothorax on right Acute
[2017-08-16] MEDS: cefTRIAXone 1 GM in STERILE WATER INJ 10 ML IV SCH (09:38)
[2017-08-16] MEDS: FAMOTIDINE 20 MG TAB PO SCH ×2 (09:38→20:01)
[2017-08-16] MEDS: ASPIRIN EC 81 MG TAB PO SCH (09:38)
[2017-08-16] MEDS: ENOXAPARIN 40 MG/0.4 ML SYR SC SCH (09:38)
--- NOTE | 2017-08-16 11:03 | PDMN ---
Medical Necessity Medical necessity: est los>2mn for spontaneous pneumothorax, bilat pulmonary infiltrates/pneumonitis r/t immunotherapy vs PNA, and COPD exacerbation; admit for chest tube, IV abx and steroids, nebs ; comorbid lung CA on immunotherapy, chronic resp failure; per order and progress note 08/15/17
--- NOTE | 2017-08-16 18:25 | SOAPPROG ---
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 Impossible to rule out an acute process or pneumonia but clinically she appears to be doing well. Respiratory panel shows boothe virus: This is a common cold virus and probably has nothing to do with her pulmonary infiltrates or possible pneumonia. Spontaneous pneumothorax: Secondary to emphysema. Small bore chest tube in place. Small air leak present this morning with small apical pneumothorax still present. Heimlich valve in place. History of non-small cell lung cancer. Recently on Nivolumab. Plan: Continue small bore chest tube to a Heimlich valve. Repeat chest x-ray in the morning. Continue bronchopulmonary therapies. Will stop Solu-Medrol and start prednisone at 40 mg daily tomorrow. Will stop azithromycin and ceftriaxone and go to Levaquin orally. I will continue to follow her with you. 08/17/17 12:56 Subjective: Feels better today. Brighter, more alert. Denies significant shortness of breath, cough or mucus. Says her breathing is close to baseline Objective: Vital Signs Temp Pulse Resp BP Pulse Ox 37.1 C 105 H 32 H 148/75 H 91 L 08/16/17 15:57 08/16/17 15:57 08/16/17 15:57 08/16/17 15:57 08/16/17 15:57 Microbiology 08/15/17 13:40 Respiratory Panel (PCR) - Final Nasal, Sinus - Swab Coronavirus Nl63 Detected Laboratory Results 08/16/17 04:03 08/16/17 04:03 08/15/17 08/16/17 08/17/17 05:59 05:59 05:59 Intake Total 1670 Output Total 1050 800 Balance 620 -800 CXR: Small pneumothorax persists at the apex. For small bore tube in place. Diffuse infiltrates present Physical Exam - Physical Exam General Appearance: alert, no apparent distress EENT: other (Nasal cannula at 6 L) Neck: normal inspection (No JVD) Respiratory: decreased breath sounds, crackles (Bilateral rales and crackles present), rales, pleural rub (Right base), No normal breath sounds, No rhonchi Cardiac/Chest: regular rate, rhythm (To tachycardic, sinus) Abdomen: normal bowel sounds, non-tender, soft Skin: warm/dry, pallor Extremities: No pedal edema Neuro/Psych: no motor/sensory deficits, No cognition abnormalities ICD10 Worksheet Patient Problems: Problems Problem Status Onset Chronic obstructive pulmonary disease with acute exacerbation Acute Non-small cell cancer of left lung Acute Pneumonia Acute Pneumothorax on right Acute
--- NOTE | 2017-08-16 18:56 | HOSPPROG ---
Hospitalist Progress Note Assessment/Plan: * Spontaneous PTX -repeat CXR in am -remove chest tube when no air leak for 24 hours * Bilateral pulmonary infiltrates - pneumonitis from immunotherapy vs. PNA -continue steroids -PO levaquin per Dr. Hanson * Lung cancer -immunotherapy on hold due to pneumonitis * Chronic respiratory failure - baseline 6L O2 * COPD exacerbation -steroids, nebs Subjective: No complaints. Objective: Vital Signs Temp Pulse Resp BP Pulse Ox 37.1 C 105 H 32 H 148/75 H 91 L 08/16/17 15:57 08/16/17 15:57 08/16/17 15:57 08/16/17 15:57 08/16/17 15:57 Microbiology 08/15/17 13:40 Respiratory Panel (PCR) - Final Nasal, Sinus - Swab Coronavirus Nl63 Detected Laboratory Results 08/16/17 04:03 08/16/17 04:03 08/15/17 08/16/17 08/17/17 05:59 05:59 05:59 Intake Total 1670 1699 Output Total 1050 800 Balance 620 899 CXR viewed, my personal interpretation is - severe bilateral infiltrates tele reviewed - sinus tachy - Physical Exam Constitutional: no apparent distress, appears nourished, not in pain Cardiovascular: regular rate and rhythym, no murmur, rub, or gallop Respiratory: no respiratory distress, no rales or rhonchi, clear to auscultation , inspiratory crackles Gastrointestinal: normoactive bowel sounds, soft, non-tender abdomen, no palpable masses Skin: no rashes or abrasions, no fluctuance, no induration Neurologic: AAOx3, sensation intact bilaterally Psychiatric: interacting appropriately, not anxious, not encephalopathic, thought process linear ICD10 Worksheet Patient Problems: Problems Problem Status Onset Chronic obstructive pulmonary disease with acute exacerbation Acute Non-small cell cancer of left lung Acute Pneumonia Acute Pneumothorax on right Acute
[2017-08-17 04:04] LABS: PLATELET COUNT 237 10^3/uL (150-400)
[2017-08-17] MEDS: ALBUTEROL 3 ML DEYVIAL IH SCH ×4 (05:15→20:15)
[2017-08-17] MEDS: predniSONE 20 MG TAB PO SCH (08:51)
[2017-08-17] MEDS: ENOXAPARIN 40 MG/0.4 ML SYR SC SCH (08:51)
[2017-08-17] MEDS: ASPIRIN EC 81 MG TAB PO SCH (08:51)
[2017-08-17] MEDS: FAMOTIDINE 20 MG TAB PO SCH ×2 (08:51→20:41)
--- NOTE | 2017-08-17 09:57 | SOAPPROG ---
SOAP Progress Note Assessment/Plan: Assessment/Plan: 81yo F with spontaneous ptx secondary to emphysema/COPD, also with lung cancer CXR this am with near resolution of tiny right apical ptx Pneumocath with heimlich valve Likely removal tomorrow by Dr. Mathews if stable Appreciate hospitalists, pulm Seen with Dr. Torres S: feeling well, no complaints this morning O:sitting up in chair, comfortable, NAD No increased WOB, CTAB but shallow respirations RRR R apical small bore CT with heimlich valve Objective: Vital Signs Temp Pulse Resp BP Pulse Ox 36.9 C 100 16 171/72 H 98 08/17/17 04:00 08/17/17 09:44 08/17/17 09:44 08/17/17 04:00 08/17/17 09:44 Laboratory Results 08/17/17 03:55 08/17/17 03:55 08/16/17 08/17/17 08/18/17 05:59 05:59 05:59 Intake Total 5600 1899 Output Total 1050 1999 Balance 620 -101 ICD10 Worksheet Patient Problems: Problems Problem Status Onset Chronic obstructive pulmonary disease with acute exacerbation Acute Non-small cell cancer of left lung Acute Pneumonia Acute Pneumothorax on right Acute
--- NOTE | 2017-08-17 11:25 | HOSPPROG ---
Hospitalist Progress Note Assessment/Plan: DIAGNOSES: * Spontaneous PTX -repeat CXR in am -chest tube management per Dr. Mathews * Bilateral pulmonary infiltrates - pneumonitis from immunotherapy vs. PNA from coronavirus or both -continue steroids -PO levaquin per Dr. Hanson while following cultures * severe acute on chronic hypoxemic respiratory failure - * COPD exacerbation -steroids, nebs * Lung cancer -immunotherapy on hold due to pneumonitis I reviewed this case in detail today with Dr. Mike Hanson. At this point there still high suspicion for this being a medication induced pneumonitis with her immunotherapy for her tumor. This would be a very severe pneumonitis from boothe virus, and at this time there is no evidence of immune suppression with increase infection risks or problems with the immunotherapy issues for her lung cancer. Nothing in cultures or other tests for infection so far and no fever. Her white blood cell count does still continue to come down even in the setting of significant steroid doses. She remains quite debilitated by dyspnea and weakness at this time will need ongoing inpatient care and therapies. 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 Little change from previous x- ray which I also reviewed for comparison Objective: Vital Signs Temp Pulse Resp BP Pulse Ox 36.7 C 106 H 35 H 148/92 H 91 L 08/17/17 11:14 08/17/17 11:14 08/17/17 11:14 02/09/18 11:14 08/17/17 11:14 Laboratory Results 08/17/17 03:55 08/17/17 03:55 08/16/17 08/17/17 08/18/17 06:59 06:59 06:59 Intake Total 1670 189 Output Total 1055 8046 176 Balance 258 -102 -685 - Time Spent With Patient Time Spent with Patient: greater than 35 minutes Time Spent with Patient: Greater than 35 minutes spent on this patients care, greater than 50% of time spent counseling, educating, and coordinating care regarding the above mentioned plan. ICD10 Worksheet Patient Problems: Problems Problem Status Onset Chronic obstructive pulmonary disease with acute exacerbation Acute Non-small cell cancer of left lung Acute Pneumonia Acute Pneumothorax on right Acute
--- NOTE | 2017-08-17 12:49 | SOAPPROG ---
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 Impossible to rule out an acute process or pneumonia but clinically she appears to be doing well. Respiratory panel shows boothe virus: This is a common cold virus and probably has nothing to do with her pulmonary infiltrates or possible pneumonia. Spontaneous pneumothorax: Secondary to emphysema. Small bore chest tube in place. Small air leak present this morning with small apical pneumothorax still present. Heimlich valve in place. History of non-small cell lung cancer. Recently on Nivolumab. Plan: Continue small bore chest tube to a Heimlich valve. Check for leak. Follow daily chest x-rays for now. Continue bronchopulmonary therapies, O2. Continue prednisone at 40 mg daily and Levaquin. I will continue to follow her with you. I am trying to get further records from her recent hospitalization at [facility]. Subjective: Unchanged. Denies increasing shortness of breath. Denies chest pain. Objective: Vital Signs Temp Pulse Resp BP Pulse Ox 36.7 C 106 H 35 H 148/92 H 91 L 08/17/17 11:14 08/17/17 11:14 08/17/17 11:14 08/17/17 11:14 08/17/17 11:14 Laboratory Results 08/17/17 03:55 08/17/17 03:55 08/16/17 08/17/17 08/18/17 05:59 05:59 05:59 Intake Total 1670 1899 Output Total 1050 2000 500 Balance 620 -101 -500 CXR: Resolved apical pneumothorax, diffuse infiltrates persist with little change Physical Exam - Physical Exam General Appearance: alert, no apparent distress EENT: other (O2 decreased to 4 L, less than her baseline pre admission.) Neck: normal inspection (No JVD) Respiratory: decreased breath sounds, rales (Bilateral scattered rales), pleural rub (Right base laterally, less), other (Heimlich valve in place. I have not yet checked for leak.), No rhonchi Abdomen: normal bowel sounds, non-tender, soft Skin: normal color, warm/dry Extremities: pedal edema (Trace) Neuro/Psych: no motor/sensory deficits, No cognition abnormalities ICD10 Worksheet Patient Problems: Problems Problem Status Onset Chronic obstructive pulmonary disease with acute exacerbation Acute Non-small cell cancer of left lung Acute Pneumonia Acute Pneumothorax on right Acute
--- NOTE | 2017-08-17 15:54 | ASMTCMCOM ---
CM Note CM Note Notes: 08/17/2017 Case Management Note Discussed d/c with son Paulino [phone]. Met w/pt. Paulino and his nephew plan to drive pt to daughter Devante's house in [facility] on 08/24. Pt in agreement with plan. Pt plans to resume cares at the [facility]. Discussed O2 needs for approximately [address] Notified Respiratory Therapy, pt requested a portable concentrator. Pt stated she is unable to make the entire trip in one day and plans to spend the night "on the road somewhere". Per pt if she is d/c from [facility] prior to 08/24 she will return to [facility] and her son Paulino will pick her up at [facility] on the to drive to [place]. Faxed updates to [facility]. Case Management d/c poc: return to [facility] if d/c prior to 08/24. Case Management to follow. Date Signed: 08/17/2017 03:54 PM Electronically Signed By:Linette Rg RN
[2017-08-18 04:17] LABS: PLATELET COUNT 228 10^3/uL (150-400)
[2017-08-18] MEDS: IPRATROPIUM/ALBUTEROL 3 ML DEYVIAL IH PRN (04:53)
[2017-08-18] MEDS: ALBUTEROL 3 ML DEYVIAL IH SCH ×4 (05:48→20:18)
--- NOTE | 2017-08-18 08:46 | SOAPPROG ---
SOAP Progress Note Assessment/Plan: Chest tube day#1 08/15/17 13:05 Assessment: Lung essentially re-expanded. trace air leak noted Plan: FU cxr in AM tube to remain in place until no air leak for 24 hours and pneumonic process stable 08/16/17 08:32 Chest tube day #2 Assessment: Lung up but air leak (small) continues. Plan: IF PTX enlarges or air leak increases, will add pleurovac CXR in AM 08/18/17 08:43 assessment: Tube non-functional ( has serous fluid present in tube and Heimlich valve / cleared ) and lung up by CXR. Plan: Remove chest tube, get f/u CXR tomorrow and replace tube if necessary Subjective: complains that she is " a little depressed" Objective: Vital Signs Temp Pulse Resp BP Pulse Ox 38.0 C 103 H 19 117/69 93 08/18/17 07:13 08/18/17 07:13 08/18/17 07:13 08/18/17 07:13 08/18/17 07:13 Laboratory Results 08/18/17 03:42 08/18/17 03:42 08/17/17 08/18/17 08/19/17 05:59 05:59 05:59 Intake Total 1899 300 Output Total 2000 500 Balance -101 -200 - Time Spent With Patient Time Spent With Patient: 15 Physical Exam - Physical Exam Respiratory: crackles, rhonchi Cardiac/Chest: other (serous fluid in chest tube ( cleared ) but no air leak) ICD10 Worksheet Patient Problems: Problems Problem Status Onset Chronic obstructive pulmonary disease with acute exacerbation Acute Non-small cell cancer of left lung Acute Pneumonia Acute Pneumothorax on right Acute
[2017-08-18] MEDS: predniSONE 20 MG TAB PO SCH (09:40)
[2017-08-18] MEDS: ENOXAPARIN 40 MG/0.4 ML SYR SC SCH (09:41)
[2017-08-18] MEDS: ASPIRIN EC 81 MG TAB PO SCH (09:41)
[2017-08-18] MEDS: FAMOTIDINE 20 MG TAB PO SCH ×2 (09:41→21:15)
--- NOTE | 2017-08-18 16:03 | SOAPPROG ---
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 Impossible to rule out an acute process or pneumonia but clinically she appears to be doing well. Respiratory panel shows boothe virus: This is a common cold virus and probably has nothing to do with her pulmonary infiltrates or possible pneumonia. Spontaneous pneumothorax: Secondary to emphysema. Small bore chest tube was removed today. Chest tube was no longer her working in there was no air leak. For follow-up chest x-ray in the a.m. History of non-small cell lung cancer. Recently on Nivolumab. Plan: Repeat chest x-ray in the morning, sooner if clinically indicated. Continue bronchopulmonary therapies. Continue prednisone at 40 mg daily and Levaquin orally. Subjective: Denies shortness of breath except when up and walking. On more oxygen currently. Objective: Vital Signs Temp Pulse Resp BP Pulse Ox 36.9 C 96 17 95/54 L 97 08/18/17 11:36 08/18/17 15:41 08/18/17 15:41 08/18/17 11:36 08/18/17 15:41 Laboratory Results 08/18/17 03:42 08/18/17 03:42 08/17/17 08/18/17 08/19/17 05:59 05:59 05:59 Intake Total 1899 300 Output Total 2000 500 Balance -101 -200 Chest x-ray: This morning: Possible small persistent right apical pneumothorax. Chest tube was subsequently removed. Physical Exam - Physical Exam General Appearance: alert, no apparent distress EENT: PERRL/EOMI, other (Oxygen in place by nasal cannula and mask currently) Neck: normal inspection Respiratory: decreased breath sounds, rales (Bilateral rales, no changes.), wheezing (Minimal), other (Breath sounds fairly equal right-sided verses left side currently.) Cardiac/Chest: regular rate, rhythm, tachycardia (Regular tachycardia at times, sinus) Abdomen: normal bowel sounds, non-tender, soft Skin: normal color, warm/dry Extremities: No pedal edema Neuro/Psych: no motor/sensory deficits, No cognition abnormalities ICD10 Worksheet Patient Problems: Problems Problem Status Onset Pneumonia Acute Chronic obstructive pulmonary disease with acute exacerbation Acute Pneumothorax on right Acute Non-small cell cancer of left lung Acute
--- NOTE | 2017-08-18 16:56 | HOSPPROG ---
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 PNA from coronavirus or both -continue steroids -PO levaquin per Dr. Hanson while following cultures * severe acute on chronic hypoxemic respiratory failure - * COPD exacerbation -steroids, nebs * Lung cancer -immunotherapy on hold due to pneumonitis I reviewed this case in detail today with Dr. Mike Hanson today Patient does continue to make some slow progress. Her family has a goal to try and take her back to [place] on August [address] they would drive her back. Will have to see how she progresses to make sure that it seems safe for her to try and make that long trip at that time. At this point it would be somewhat questionable given her oxygen needs as she does use up to 10 L of oxygen just to walk very short distance and not be overly dyspneic. There may be some financial/insurance issues as well. The patient herself for some reason was under the impression that she would travel the [place] by [employer] helicopter, but this is clearly not feasible from a financial/insurance standpoint and I have explained this to her. PLANS: -continue on current steroid doses for now -continue on Levaquin, follow cultures -increase activity as able -DVT prophylaxis -Repeat CBC and chemistries in the morning and review those as well SUBJECTIVE: Continues to have some dyspnea, no chest pain, still with productive cough all really unchanged since yesterday No chills or sweats Appetite is somewhat better today OBJECTIVE Vitals reviewed: Still on 6 L of oxygen but sats have been very high, probably able to get by with less oxygen now, respiratory rate up into the 30s at times, otherwise stable without fever; nurses have recorded several pulse rates in the 105-125 range in her vital signs in the chart, but looking at the heart rate trend through the day she has rarely had a heart rate higher than 95 and mostly it is between 85 and 90. All sinus. Current pulse is 92 It Generalist, my review: Sinus Exam: alert oriented skin warm dry color ok resps not labored lungs still with diffuse wheeze, rhonchi, rales with diminished BSs overall heart regular abd soft nondistended nontender, bowel sounds present limbs warm, no edema iv site ok Lab data: White blood cell count notably better today Anemia stable hemoglobin 10, stable platelets Glucose is better other chemistry numbers stable Microbiology data: Nolasco virus is present on her respiratory pathogen panel but doubt this is significant in terms of her pulmonary infiltrates or overall illness Cultures remain negative to date I reviewed images from her chest x-ray today , my interpretation: persisting diffuse severe bilateral pulm infiltrates Objective: Vital Signs Temp Pulse Resp BP Pulse Ox 36.9 C 96 17 95/54 L 97 08/18/17 11:36 08/18/17 15:41 08/18/17 15:41 08/18/17 11:36 08/18/17 15:41 Laboratory Results 08/18/17 03:42 08/18/17 03:42 08/17/17 08/18/17 08/19/17 06:59 06:59 06:59 Intake Total 1899 300 Output Total 2000 500 Balance -101 -200 - Time Spent With Patient Time Spent with Patient: greater than 35 minutes Time Spent with Patient: Greater than 35 minutes spent on this patients care, greater than 50% of time spent counseling, educating, and coordinating care regarding the above mentioned plan. ICD10 Worksheet Patient Problems: Problems Problem Status Onset Chronic obstructive pulmonary disease with acute exacerbation Acute Non-small cell cancer of left lung Acute Pneumonia Acute Pneumothorax on right Acute
[2017-08-19] MEDS: ALBUTEROL 3 ML DEYVIAL IH SCH ×4 (05:52→20:16)
--- NOTE | 2017-08-19 09:19 | SOAPPROG ---
SOAP Progress Note Assessment/Plan: Chest tube day#1 08/15/17 13:05 Assessment: Lung essentially re-expanded. trace air leak noted Plan: FU cxr in AM tube to remain in place until no air leak for 24 hours and pneumonic process stable 08/16/17 08:32 Chest tube day #2 Assessment: Lung up but air leak (small) continues. Plan: IF PTX enlarges or air leak increases, will add pleurovac CXR in AM 08/18/17 08:43 Chest tube day #4 assessment: Tube non-functional ( has serous fluid present in tube and Heimlich valve / cleared ) and lung up by CXR. Plan: Remove chest tube, get f/u CXR tomorrow and replace tube if necessary 08/19/17 09:17 Assessment: Lung up by CXR this morning. Plan: I will sign off. Please re-consult if necessary Subjective: complains of some left chest discomfort Objective: Vital Signs Temp Pulse Resp BP Pulse Ox 37.7 C 89 15 110/55 L 95 08/19/17 07:14 08/19/17 07:14 08/19/17 07:14 08/19/17 07:14 08/19/17 07:14 Laboratory Results 08/18/17 03:42 08/18/17 03:42 08/18/17 08/19/17 08/20/17 05:59 05:59 05:59 Intake Total 300 370 Output Total 500 Balance -200 370 - Time Spent With Patient Time Spent With Patient: 15 ICD10 Worksheet Patient Problems: Problems Problem Status Onset Chronic obstructive pulmonary disease with acute exacerbation Acute Non-small cell cancer of left lung Acute Pneumonia Acute Pneumothorax on right Acute
[2017-08-19] MEDS: FAMOTIDINE 20 MG TAB PO SCH ×2 (09:54→21:28)
[2017-08-19] MEDS: predniSONE 20 MG TAB PO SCH (09:54)
[2017-08-19] MEDS: ASPIRIN EC 81 MG TAB PO SCH (09:54)
[2017-08-19] MEDS: ENOXAPARIN 40 MG/0.4 ML SYR SC SCH (09:54)
--- NOTE | 2017-08-19 17:45 | ASMTCMCOM ---
CM Note CM Note Notes: Spoke with RN; pt's son will not be able to drive pt to [place] until September 07. Met with pt to discuss dc poc; pt agreeable to returning to [facility] until she is able to leave for [place]. Discussed pt's plan once she gets to [place]; pt states she does not have a place to live when she gets there & is unsure if she can stay with her daughter Devante "because she has a bad heart". Pt planning on going to [facility] when she gets to [place] to establish care. Updated RN & MD. MD requesting CM obtain pt's medical records from [facility]; CM will need to follow up Sunday morning. MD also inquring if pt has any rehab days available; reports pt will need rehab at time of dc & possibly information on transitioning into hospice. LVM for Melly, at [facility] to discuss. CM will follow. Date Signed: 08/19/2017 05:45 PM Electronically Signed By:Opal Otto RN
--- NOTE | 2017-08-19 18:46 | SOAPPROG ---
SOAP Progress Note Assessment/Plan: Assessment: COPD/emphysema, severe Pulmonary infiltrates: Likely chronic, probably post inflammatory fibrosis or post pneumonitis secondary to chemo-immunotherapy. Impossible to rule out an acute process or pneumonia but clinically this does not appear to be the case. Respiratory panel shows boothe virus: This is a common cold virus and probably has nothing to do with her pulmonary infiltrates or possible pneumonia. Spontaneous pneumothorax: Secondary to emphysema. Small bore chest tube was removed yesterday. Lung remains up on the right. This was the reason that she came in with increased shortness of breath. In retrospect, pneumonia or significant exacerbation of her underlying lung disease does not appear to be present. History of non-small cell lung cancer. She received radiation therapy and some chemotherapy, recently on Nivolumab. Apparently pneumonitis was associated with this treatment. All her treatment was in [place], with her oncologist being I believe at "[facility] ". Recent outpatient records as well as her inpatient records from [facility] in May should be obtained. Plan: From my standpoint she can be discharged back to [facility] tomorrow. Prednisone should be weaned slowly from 40 mg back to 20 mg per day, her pre hospitalization dose. Continue bronchopulmonary therapies. Continue Levaquin orally x7 days total. Follow-up may be required with her oncologist in [place]. Per the patient's report her son will be coming to pick her up in several weeks and take her back to [place]? If so, she will likely need to be transferred to a alf facility there. Subjective: Breathing is okay, apparently at baseline. She denies significant shortness of breath. On 4 L, 2 less than she was on as an outpatient. She denies chest pain. Objective: Vital Signs Temp Pulse Resp BP Pulse Ox 36.8 C 97 20 101/52 L 94 08/19/17 14:46 08/19/17 15:32 08/19/17 15:32 08/19/17 14:46 08/19/17 15:32 Laboratory Results 08/18/17 03:42 08/18/17 03:42 08/18/17 08/19/17 08/20/17 05:59 05:59 05:59 Intake Total 300 370 450 Output Total 500 500 Balance -200 370 -50 CXR: Bilateral infiltrates unchanged. Lungs well expanded following small bore chest tube removal yesterday. No evidence of a recurrent pneumothorax. Physical Exam - Physical Exam General Appearance: alert, no apparent distress, thin EENT: other (Nasal cannula in place at 4 L) Neck: normal inspection (No JVD) Respiratory: decreased breath sounds (Bilaterally), rales (Scattered rales noted bilaterally), wheezing (Few scattered wheezes present), prolonged expiration, No pleural rub (Resolved at lateral right base) Cardiac/Chest: regular rate, rhythm, systolic murmur, other (Increased P2) Abdomen: normal bowel sounds, non-tender, soft Skin: normal color, warm/dry Extremities: No pedal edema Neuro/Psych: no motor/sensory deficits (Moves all extremities equally. Somewhat weak), No cognition abnormalities ICD10 Worksheet Patient Problems: Problems Problem Status Onset Pneumonia Acute Chronic obstructive pulmonary disease with acute exacerbation Acute Pneumothorax on right Acute Non-small cell cancer of left lung Acute
--- NOTE | 2017-08-19 18:48 | HOSPPROG ---
Hospitalist Progress Note Assessment/Plan: DIAGNOSES: * Spontaneous PTX -status post successful treatment with chest tube which is now out an lung remains up on x-ray * Bilateral pulmonary infiltrates - pneumonitis from immunotherapy vs. PNA from coronavirus or both -continues very slow improvement in dyspnea and oxygen need, remains extremely weak related to this -continue steroids -PO levaquin per Dr. Hanson, while following cultures no growth to date * severe acute on chronic hypoxemic respiratory failure - * COPD exacerbation -steroids, nebs * Lung cancer -immunotherapy on hold due to pneumonitis I reviewed this case in detail today with Dr. Mike Hanson today As she continues to make progress will continue her current therapies. Plan will be to transfer her to half-way facility probably in the next couple of days. It sounds like her family is still wanting to try move her back to [place] and they are trying to find a way to drive adherent drive her back, but it sounds like they would be unavailable due to to do that until at least early September. Will end up sending her back to [facility] which is her current home which will probably need some half-way facility care and I have asked our pillowcase sewer to begin trying to make arrangements for that. 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, my review: Sinus Exam: alert oriented skin warm dry color ok resps not labored lungs still with diffuse wheeze, rhonchi, rales with diminished BSs overall heart regular abd soft nondistended nontender, bowel sounds present limbs warm, no edema iv site ok Microbiology data: Nolasco virus is present on her respiratory pathogen panel but doubt this is significant in terms of her pulmonary infiltrates or overall illness Cultures remain negative to date Chest x-ray done today, two views: I reviewed the images and on my reading the show persistent unchanged diffuse bilateral infiltrates, but there is no pneumothorax at this time with the chest tube out Objective: Vital Signs Temp Pulse Resp BP Pulse Ox 36.8 C 97 20 101/52 L 94 08/19/17 14:46 08/19/17 15:32 08/19/17 15:32 08/19/17 14:46 08/19/17 15:32 Laboratory Results 08/18/17 03:42 08/18/17 03:42 08/18/17 08/19/17 08/20/17 06:59 06:59 06:59 Intake Total 300 370 450 Output Total 500 500 Balance -200 370 -50 ICD10 Worksheet Patient Problems: Problems Problem Status Onset Chronic obstructive pulmonary disease with acute exacerbation Acute Non-small cell cancer of left lung Acute Pneumonia Acute Pneumothorax on right Acute
[2017-08-20 04:21] LABS: PLATELET COUNT 194 10^3/uL (150-400)
[2017-08-20] MEDS: ALBUTEROL 3 ML DEYVIAL IH SCH ×4 (05:34→20:48)
[2017-08-20] MEDS: predniSONE 20 MG TAB PO SCH (08:41)
[2017-08-20] MEDS: ENOXAPARIN 40 MG/0.4 ML SYR SC SCH (08:41)
[2017-08-20] MEDS: FAMOTIDINE 20 MG TAB PO SCH ×2 (08:41→19:44)
[2017-08-20] MEDS: ASPIRIN EC 81 MG TAB PO SCH (08:41)
--- NOTE | 2017-08-20 12:02 | ASMTCMCOM ---
CM Note CM Note Notes: 08/20/2017 Case Management Note Reviewed chart. Called Melly from [facility] and confirmed pt can return to [facility] upon d/c until family able to transport to [place]. Pt lives at [facility] under Medicaid and ene have therapies added under her Medicare benefits if needed. Bin Tripper Operator requesting records from [facility]. Case Management d/c poc: return to [facility]. Case Management to follow. Date Signed: 08/20/2017 12:01 PM Electronically Signed By:Linette Rg RN
--- NOTE | 2017-08-20 19:49 | HOSPPROG ---
Hospitalist Progress Note Assessment/Plan: DIAGNOSES: * Spontaneous PTX -status post successful treatment with chest tube which is now out an lung remains up on x-ray * Bilateral pulmonary infiltrates - pneumonitis from immunotherapy vs. PNA from coronavirus or both -continues very slow improvement in dyspnea and oxygen need, remains extremely weak related to this -continue steroids -PO levaquin per Dr. Hanson, while following cultures no growth to date * severe acute on chronic hypoxemic respiratory failure - * COPD exacerbation -steroids, nebs * Lung cancer -immunotherapy on hold due to pneumonitis As she continues to make progress will continue her current therapies. Plan will be to transfer her to shelter facility probably in the next couple of days. It sounds like her family is still wanting to try move her back to [place] and they are trying to find a way to drive adherent drive her back, but it sounds like they would be unavailable due to to do that until at least early September. Will end up sending her back to [facility] which is her current home which will probably need some shelter facility care and I have asked our case management coordinator to begin trying to make arrangements for that. PLANS: -continue Acapella device -continue to observe here at least 1 more day to make sure her breathing stable ; consider possible transfer to shelter facility if she remains stable tomorrow -continue on current steroid doses for now -continue on Levaquin, follow cultures -increase activity as able -DVT prophylaxis -Repeat CBC and chemistries in the morning and review those as well SUBJECTIVE: This morning had significant dyspnea along with a very prolonged coughing spell , associated with significant oxygen saturation requiring transiently mask oxygen at high flow rate, this was improved after beginning use of Acapella device and some extra bronchodilator dose Still requiring 5 L of oxygen at rest in bed this evening but feeling somewhat better No other new symptoms OBJECTIVE Vitals reviewed: Stable without fever today 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, my review: Sinus Exam: alert oriented skin warm dry color ok resps not labored lungs still with diffuse wheeze, rhonchi, rales with diminished BSs overall heart regular abd soft nondistended nontender, bowel sounds present limbs warm, no edema iv site ok Microbiology data: Nolasco virus is present on her respiratory pathogen panel but doubt this is significant in terms of her pulmonary infiltrates or overall illness Cultures remain negative to date Objective: Vital Signs Temp Pulse Resp BP Pulse Ox 36.6 C 88 16 101/48 L 94 08/20/17 16:50 08/20/17 16:50 08/20/17 16:50 08/20/17 16:50 08/20/17 16:50 Laboratory Results 08/20/17 03:38 08/20/17 03:38 08/19/17 08/20/17 08/21/17 06:59 06:59 06:59 Intake Total 370 700 600 Output Total 1475 Balance 370 -331 600 ICD10 Worksheet Patient Problems: Problems Problem Status Onset Chronic obstructive pulmonary disease with acute exacerbation Acute Non-small cell cancer of left lung Acute Pneumonia Acute Pneumothorax on right Acute
[2017-08-21] MEDS: ALBUTEROL 3 ML DEYVIAL IH SCH ×4 (05:26→21:02)
[2017-08-21] MEDS: IPRATROPIUM/ALBUTEROL 3 ML DEYVIAL IH PRN (08:07)
--- NOTE | 2017-08-21 08:35 | WOCRNPDOC ---
WOCRN Advanced Assessment Note - Skin Integrity Problem, Advanced Assess Right Lateral Sacrum Pressure Injury Dressing Type: Allevyn Life Dressing Description: Clean/Dry, Intact Exudate Amount: Scant Exudate Color: Reddish/Yellow Exudate Characteristic(s): Serosanguinous Integumentary Issue Intervention: Visualized Under Dressing Maria Wound Tissue: Blanching, Intact Maria Wound Swelling: None Wound Bed Color: Red Wound Bed Constitution: Red/[place] - Non Granular Tissue Wound Edges: Epithelizing Site Measurement - Head-to-Toe Length X Width X Depth (cm): 0.4cmx0.3cmx0.1cm Pressure Injury Stage: Stage 2 Pressure Injury Present on Admit: Yes (documented by Wound RN) Skin Integrity Problem Comment: Small area of partial-thickness tissue loss w/ friable edges, consistent w/ stage 2 pressure injury. Wound dimensions smaller than previous assessment. Maria-wound skin is intact/ patient does have several, scattered areas of erythema on her sacrum and buttocks, all currently blanching. Continue w/ plan of care, including pressure-relieving mattress w/ pump, turns q2, and protective dressing. Left Gluteal Cleft Dressing Type: Open to Air Exudate Amount: None Exudate Characteristic(s): None Maria Wound Tissue: Blanching, Intact Maria Wound Swelling: None Wound Bed Color: Red Wound Bed Constitution: Red/[place] - Non Granular Tissue Wound Edges: Epithelizing Site Measurement - Head-to-Toe Length X Width X Depth (cm): 0.3cmx0.4cmx0.1cm Skin Integrity Problem Comment: Small area of partial-thickness tissue loss, resolving, no swelling observed. Periwound skin is intact and blanching. Even though this wound is not pressure-related, off-loading measures are helpful. Continue w/ plan of care. Coccyx Dressing Type: Open to Air Exudate Amount: None Exudate Characteristic(s): None Maria Wound Tissue: Blanching, Intact Skin Integrity Problem Comment: Blanching erythema noted over coccyx, skin intact. Periwound skin is also intact, and there is no breakdown evident. Continue w/ current plan of care.
[2017-08-21] MEDS: ASPIRIN EC 81 MG TAB PO SCH (09:24)
[2017-08-21] MEDS: predniSONE 20 MG TAB PO SCH (09:24)
[2017-08-21] MEDS: FAMOTIDINE 20 MG TAB PO SCH ×2 (09:24→19:30)
[2017-08-21] MEDS: ENOXAPARIN 40 MG/0.4 ML SYR SC SCH (09:27)
[2017-08-21 09:35] LABS: PLATELET COUNT 190 10^3/uL (150-400)
--- NOTE | 2017-08-21 15:22 | HOSPPROG ---
Hospitalist Progress Note Assessment/Plan: DIAGNOSES: * Spontaneous PTX -status post successful treatment with chest tube which is now out Recurrence of Spontaneous R pneumothorax today, days after chest tube removal -small/moderate volume at present and stable resps/BP/P overall, but needs very close follow up * Bilateral pulmonary infiltrates - pneumonitis from immunotherapy vs. PNA from coronavirus or both -continues very slow improvement in dyspnea and oxygen need, remains extremely weak related to this -continue steroids -remains on po levaquin, no infectious agent identifiec * severe acute on chronic hypoxemic respiratory failure * COPD exacerbation acute -steroids, nebs * Lung cancer -immunotherapy on hold due to pneumonitis Condition and plans an radiologic images all reviewed in detail today with Dr. Bunny Gomez PLANS: -repeat chest x-ray in 2-3 hours to follow progress of her recurrent pneumothorax, considered possible need for chest tube; I reviewed the situation and her chest x-ray today with Dr. Bunny Gomez -continue Acapella device, add Mucinex -continue to observe here at least 1 more day to make sure her breathing stable ; consider possible transfer to usp facility if she remains stable tomorrow -will increase her prednisone to 60 mg at this time -continue on Levaquin, follow cultures -increase activity as able -DVT prophylaxis SUBJECTIVE: Continues have fluctuating coughing spells associated with dyspnea hypoxemia tachycardia tachypnea, though these do settle down over time and she did have another 1 of these episodes this morning. 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, my review: Sinus Exam: alert oriented skin warm dry color ok resps not labored lungs still with diffuse wheeze, rhonchi, rales with diminished BSs overall, essentially unchanged heart regular abd soft nondistended nontender, bowel sounds present limbs warm, no edema iv site ok Microbiology data: Nolasco virus is present on her respiratory pathogen panel but doubt this is significant in terms of her pulmonary infiltrates or overall illness All cultures final and negative Objective: Vital Signs Temp Pulse Resp BP Pulse Ox 36.2 C 90 20 94/50 L 99 08/21/17 12:00 08/21/17 12:00 08/21/17 12:00 08/21/17 12:00 08/21/17 12:00 Laboratory Results 08/21/17 09:25 08/21/17 09:25 08/20/17 08/21/17 08/22/17 06:59 06:59 06:59 Intake Total 700 1150 150 Output Total 1475 1500 300 Balance -775 -350 -150 - Time Spent With Patient Time Spent with Patient: greater than 35 minutes Time Spent with Patient: Greater than 35 minutes spent on this patients care, greater than 50% of time spent counseling, educating, and coordinating care regarding the above mentioned plan. ICD10 Worksheet Patient Problems: Problems Problem Status Onset Chronic obstructive pulmonary disease with acute exacerbation Acute Non-small cell cancer of left lung Acute Pneumonia Acute Pneumothorax on right Acute
[2017-08-22 04:41] LABS: PLATELET COUNT 174 10^3/uL (150-400)
[2017-08-22] MEDS: ALBUTEROL 3 ML DEYVIAL IH SCH ×4 (05:41→20:38)
[2017-08-22] MEDS: FAMOTIDINE 20 MG TAB PO SCH ×2 (08:26→21:05)
[2017-08-22] MEDS: predniSONE 20 MG TAB PO SCH (09:26)
[2017-08-22] MEDS: ASPIRIN EC 81 MG TAB PO SCH (09:26)
[2017-08-22] MEDS: ENOXAPARIN 40 MG/0.4 ML SYR SC SCH (09:27)
--- NOTE | 2017-08-22 13:31 | HOSPPROG ---
Hospitalist Progress Note Assessment/Plan: 82 year old female w NSCLCA a/w dyspnea * Spontaneous PTX -status post successful treatment with chest tube which is now out recurrent pneumothorax noted, stable continue o2 daily cxr * Bilateral pulmonary infiltrates - pneumonitis from immunotherapy vs. PNA from coronavirus or both -continues very slow improvement in dyspnea and oxygen need, remains extremely weak related to this -continue steroids -s/p 7 days levoflox * severe acute on chronic hypoxemic respiratory failure 2/2 above * COPD exacerbation acute -steroids, nebs * Lung cancer -immunotherapy on hold due to pneumonitis constipation: add miralax proph: add lmwh dispo: inpt Subjective: repeat cxr unchanged, small apical pneumothorax (interp by me). case d/w dr pearson Objective: Vital Signs Temp Pulse Resp BP Pulse Ox 36.6 C 92 28 H 107/51 L 94 08/22/17 11:02 08/22/17 11:51 08/22/17 11:51 08/22/17 11:02 08/22/17 11:51 Laboratory Results 08/22/17 04:06 08/22/17 04:06 08/21/17 08/22/17 08/23/17 05:59 05:59 05:59 Intake Total 1150 500 350 Output Total 1500 650 Balance -350 -150 350 - Physical Exam Constitutional: no apparent distress, appears nourished Eyes: PERRL, anicteric sclera Ears, Nose, Mouth, Throat: moist mucous membranes, hearing normal Cardiovascular: no murmur, rub, or gallop, tachycardia Respiratory: other (diffuse rhonchi, minimal wheeze, prolonged expiratory phase , decreased air movement) Gastrointestinal: normoactive bowel sounds, soft, non-tender abdomen Genitourinary: no bladder fullness, No marin in urethra Skin: warm, No no induration Musculoskeletal: full muscle strength, no muscle tenderness ICD10 Worksheet Patient Problems: Problems Problem Status Onset Chronic obstructive pulmonary disease with acute exacerbation Acute Non-small cell cancer of left lung Acute Pneumonia Acute Pneumothorax on right Acute
[2017-08-22] MEDS: POLYETHYLENE GLYCOL 3350 17 GM PKT PO SCH (14:52)
--- NOTE | 2017-08-22 14:56 | ASMTCMCOM ---
CM Note CM Note Notes: 08/22/2017 Case Management Note Phone call from Melly at [facility]. Faxed updates to [facility] through [employer]. Case Management d/c poc: Return to [facility] with plans for son to drive to [place] first september. Case Management to follow. Date Signed: 08/22/2017 02:15 PM Electronically Signed By:Linette Rg RN
--- NOTE | 2017-08-22 15:54 | PDINTPN ---
Mat Worker Progress Note Assessment/Plan: Assessment: COPD/emphysema, severe Pulmonary infiltrates: Likely chronic, probably post inflammatory fibrosis or post pneumonitis secondary to chemo-immunotherapy. Impossible to rule out an acute process or pneumonia but clinically this does not appear to be the case. Respiratory panel shows boothe virus: This is a common cold virus and probably has nothing to do with her pulmonary infiltrates or possible pneumonia. Spontaneous pneumothorax: Secondary to emphysema. Small bore chest tube was removed over the weekend. Small PTX returned yesterday, now a bit smaller today. This was the reason that she came in with increased shortness of breath. In retrospect, pneumonia or significant exacerbation of her underlying lung disease does not appear to be present. History of non-small cell lung cancer. She received radiation therapy and some chemotherapy, recently on Nivolumab. Apparently pneumonitis was associated with this treatment. All her treatment was in [place], with her oncologist being I believe at "[facility] ". Recent outpatient records as well as her inpatient records from [facility] in May should be obtained. Plan: Repeat CXR tomorrow. Continue O2 to keep sats in mid 90s. Prednisone should be continued at 40 mg/day, repeat CXR in a week and consider decrease in dose if CXR improving. Patient should follow-up with [facility] oncologist, they may have other plans regarding prednisone therapy. Hold flutter valve until PTX better. Discontinue Levaquin now that she completed 7 days. Per the patient's report her son will be coming to pick her up in several weeks and take her back to [place]? If so, she will likely need to be transferred to a fpc facility there. 08/22/17 15:58 Subjective: Denies dyspnea,cough,CP. Objective: Vital Signs Temp Pulse Resp BP Pulse Ox 36.7 C 94 20 113/43 L 94 08/22/17 15:14 08/22/17 15:14 08/22/17 15:14 08/22/17 15:14 08/22/17 15:14 Laboratory Results 08/22/17 04:06 08/22/17 04:06 08/21/17 08/22/17 08/23/17 05:59 05:59 05:59 Intake Total 1150 500 350 Output Total 1500 650 Balance -350 -150 350 CXR: Slight decrease in size of small right PTX. Extensive patchy infiltrates persist. Images reviewed by me. Physical Exam - Physical Exam General Appearance: alert, no apparent distress EENT: normal ENT inspection Neck: full range of motion, normal inspection Respiratory: crackles (bilateral) Cardiac/Chest: regular rate, rhythm, edema Abdomen: normal bowel sounds, non-tender Skin: normal color, warm/dry Extremities: non-tender, normal inspection Neuro/Psych: alert, normal mood/affect, oriented x 3 ICD10 Worksheet Patient Problems: Problems Problem Status Onset Chronic obstructive pulmonary disease with acute exacerbation Acute Non-small cell cancer of left lung Acute Pneumonia Acute Pneumothorax on right Acute
[2017-08-23] MEDS: ALBUTEROL 3 ML DEYVIAL IH SCH ×4 (06:18→20:42)
[2017-08-23] MEDS: FAMOTIDINE 20 MG TAB PO SCH ×2 (08:37→20:21)
[2017-08-23] MEDS: predniSONE 20 MG TAB PO SCH (08:37)
[2017-08-23] MEDS: ASPIRIN EC 81 MG TAB PO SCH (08:37)
[2017-08-23] MEDS: POLYETHYLENE GLYCOL 3350 17 GM PKT PO SCH (08:38)
[2017-08-23] MEDS: ENOXAPARIN 40 MG/0.4 ML SYR SC SCH (08:38)
--- NOTE | 2017-08-23 16:14 | HOSPPROG ---
Hospitalist Progress Note Assessment/Plan: 82 year old female w NSCLCA a/w dyspnea * Spontaneous PTX -status post successful treatment with chest tube which is now out recurrent pneumothorax noted, stable continue o2 daily cxr * Bilateral pulmonary infiltrates - pneumonitis from immunotherapy vs. PNA from coronavirus or both -continues very slow improvement in dyspnea and oxygen need, remains extremely weak related to this -continue steroids -s/p 7 days levoflox * severe acute on chronic hypoxemic respiratory failure 2/2 above * COPD exacerbation acute -steroids, nebs * Lung cancer -immunotherapy on hold due to pneumonitis constipation: add miralax plan of care: seen by palliative care who confirm her desire to return to [place] and her acceptance of limited lifespan proph: add lmwh dispo: inpt Subjective: cxr w stable to decreased pneumothorax (interp by me) Objective: Vital Signs Temp Pulse Resp BP Pulse Ox 36.6 C 94 18 124/67 H 96 08/23/17 12:00 08/23/17 15:11 08/23/17 15:11 08/23/17 12:00 08/23/17 15:11 Laboratory Results 08/22/17 04:06 08/22/17 04:06 08/22/17 08/23/17 08/24/17 05:59 05:59 05:59 Intake Total 500 890 Output Total 650 200 Balance -150 690 - Physical Exam Constitutional: no apparent distress, appears nourished Eyes: PERRL, anicteric sclera Ears, Nose, Mouth, Throat: moist mucous membranes, hearing normal Cardiovascular: regular rate and rhythym, no murmur, rub, or gallop Respiratory: no respiratory distress, other (rhonchorous b/l. unchanged), No no rales or rhonchi Gastrointestinal: normoactive bowel sounds, soft, non-tender abdomen Genitourinary: no bladder fullness Skin: warm, normal color Musculoskeletal: full muscle strength, no muscle tenderness Neurologic: AAOx3 ICD10 Worksheet Patient Problems: Problems Problem Status Onset Chronic obstructive pulmonary disease with acute exacerbation Acute Non-small cell cancer of left lung Acute Pneumonia Acute Pneumothorax on right Acute
[2017-08-24] MEDS: ALBUTEROL 3 ML DEYVIAL IH SCH ×2 (05:58→12:22)
[2017-08-24 07:31] VITALS: BP 117/58; TEMP 98
[2017-08-24] MEDS: ENOXAPARIN 40 MG/0.4 ML SYR SC SCH (08:38)
[2017-08-24] MEDS: POLYETHYLENE GLYCOL 3350 17 GM PKT PO SCH (08:38)
[2017-08-24] MEDS: ASPIRIN EC 81 MG TAB PO SCH (08:39)
[2017-08-24] MEDS: predniSONE 20 MG TAB PO SCH (08:39)
[2017-08-24] MEDS: FAMOTIDINE 20 MG TAB PO SCH (08:39)
[2017-08-24 12:33] VITALS: PULSE 94; RESP 24; O2SAT 94
--- NOTE | 2017-08-24 12:55 | PDIAF ---
- Diagnosis Diagnosis: copd and lung cancer Code Status: Full Code - Medication Management Discharge Medications: Medications to Continue on Transfer Aspirin EC [Aspirin EC 81 mg (*)] 81 mg PO DAILY 08/11/17 [Last Taken 08/14/17] predniSONE 20 mg PO DAILY 08/11/17 [Last Taken 08/14/17] Acetaminophen [Tylenol 325mg (*)] 650 mg PO Q4HRS PRN 08/15/17 [Last Taken Unknown] Ipratropium/Albuterol [Duoneb (*)] 3 ml IH Q4HRS PRN 08/15/17 [Last Taken Unknown] Magnesium Hydroxide [Milk of Magnesia] 30 ml PO DAILY PRN 08/15/17 [Last Taken Unknown] Magnesium Hydroxide/Al Hydrox [Mylanta Liquid] 20 ml PO Q6HRS PRN 08/15/17 [ Last Taken Unknown] Discharge Medications: Refer to the Discharge Home Medication list for PRN reason. - Orders Services needed: Registered Nurse, Certified Lpn Cma, Physical Therapy, Occupational Therapy Isolation Type: Droplet Isolation Diet Texture: Regular Texture Diet, Thin Liquids, Meds Whole w/Liquids - Follow Up Care Current Providers and Referrals: ALETA LARIOS [Other] - As per Instructions
--- NOTE | 2017-08-24 13:20 | HOSPPROG ---
Hospitalist Progress Note Assessment/Plan: 82 year old female w NSCLCA a/w dyspnea * Spontaneous PTX -status post successful treatment with chest tube which is now out recurrent pneumothorax noted, stable continue o2 stable over several days * Bilateral pulmonary infiltrates - pneumonitis from immunotherapy vs. PNA from coronavirus or both -continues very slow improvement in dyspnea and oxygen need, remains extremely weak related to this -continue steroids -s/p 7 days levoflox * severe acute on chronic hypoxemic respiratory failure 2/2 above * COPD exacerbation acute -steroids, nebs * Lung cancer -immunotherapy on hold due to pneumonitis constipation: add miralax plan of care: seen by palliative care who confirm her desire to return to [place] and her acceptance of limited lifespan proph: add lmwh dispo: dc to [facility] today > 30 minutes on dc Subjective: cxr unchanged- small pnx Objective: Vital Signs Temp Pulse Resp BP Pulse Ox 36.7 C 94 24 H 117/58 L 94 08/24/17 07:30 08/24/17 12:25 08/24/17 12:25 08/24/17 07:30 08/24/17 12:25 Laboratory Results 08/22/17 04:06 08/22/17 04:06 08/23/17 08/24/17 08/25/17 05:59 05:59 05:59 Intake Total 890 700 Output Total 200 950 200 Balance 690 -250 -200 - Physical Exam Constitutional: no apparent distress, appears nourished Eyes: PERRL, anicteric sclera Ears, Nose, Mouth, Throat: moist mucous membranes, hearing normal Cardiovascular: regular rate and rhythym, no murmur, rub, or gallop Respiratory: rhonchi, No no rales or rhonchi Gastrointestinal: normoactive bowel sounds, soft, non-tender abdomen Genitourinary: no bladder fullness Skin: warm, normal color Musculoskeletal: full muscle strength Neurologic: AAOx3 ICD10 Worksheet Patient Problems: Problems Problem Status Onset Chronic obstructive pulmonary disease with acute exacerbation Acute Non-small cell cancer of left lung Acute Pneumonia Acute Pneumothorax on right Acute
--- NOTE | 2017-08-24 14:53 | ASDISCHSUM ---
Discharge Information Plan Status:SNF Medically Cleared to Leave: Discharge Date:08/24/2017 02:43 PM D/C Disposition:Detention Facility ADT D/C Disposition:Home, Routine, Self-Care Projected Discharge Date:08/19/2017 11:00 AM Transportation at D/C: Discharge Delay Reason: Follow-Up Date:08/19/2017 11:00 AM Discharge Slot: Final Diagnosis: Placement Information Referral Type:*Fpc/SNF Referral ID:[id number] Provider Name:Kiera Enrique/DALILA Campos Address 1:[address] [facility] Phone Number: Address 2: Fax Number: City:[place] Selection Factors: State:[place] Patient Contact Information Contact Name:KATTY Relationship:Son Address: City: [facility] Phone: [facility]/InformedDNA Code: Email: Financial Information Financial Class:Medicare Advantage Plans Primary Plan Desc:[facility] ADV[facility] Protonet Primary Plan Number:[id number] Secondary Plan Desc:[place] Secondary Plan Number:[id number] Assessment Information [facility] CM Progress Note CM Note CM Note Notes: Patient admitted after she called 911 after being woken from sleep by acute SOB and R sided chest pain. She was found to have a R sided pneumothorax that was relieved by a R sided chest tube. She is now resting comfortably in the ICU on 6L O2. I spoke with both patient's son Paulino (local - [phone] ) and daughter Devante ([phone]). Per Paulino, patient has been at [facility] since late May 2017. He thinks it was a doctor at [facility] who had her sent there to manage her O2 needs. Paulino says that before that, they have been living in [facility] [place] for the past 4 years. The patient and both of her children feel she is getting suboptimal care at [facility], and daughter Devante states she is trying to get the patient to [place] where she lives. She says that a Security Technician at has said he'd help with this transfer, including a medical flight, but I advised Devante that patient would likely not qualify for this. I encouraged Devante and Paulino to make a plan together, and that the best option would be for one of them to accompany patient to [place]. If they are unable to formulate a plan, we will have to send patient back to [facility] or another [facility]. 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 to see how much of her insurance benefits she has used. A PT eval has been ordered. CM will follow; discharge plan TBD Date Signed: 08/15/2017 12:28 PM Electronically Signed By:Apryl Celestin RN [facility] CM Progress Note CM Note CM Note Notes: 08/17/2017 Case Management Note Discussed d/c with son Paulino [phone]. Met w/pt. Paulino and his nephew plan to drive pt to daughter Devante's house in [place] on 08/24. Pt in agreement with plan. Pt plans to resume cares at the [facility]. Discussed O2 needs for approximately [address] Notified Respiratory Therapy, pt requested a portable concentrator. Pt stated she is unable to make the entire trip in one day and plans to spend the night "on the road somewhere". Per pt if she is d/c from [facility] prior to 08/24 she will return to [facility] and her son Paulino will pick her up at [facility] on the to drive to [place]. Faxed updates to [facility]. Case Management d/c poc: return to [facility] if d/c prior to 08/24. Case Management to follow. Date Signed: 08/17/2017 03:54 PM Electronically Signed By:Linette Rg RN [facility] Progress Note CM Note CM Note Notes: Spoke with RN; pt's son will not be able to drive pt to [place] until September 07. Met with pt to discuss dc poc; pt agreeable to returning to [facility] until she is able to leave for [place]. Discussed pt's plan once she gets to [place]; pt states she does not have a place to live when she gets there & is unsure if she can stay with her daughter Devante "because she has a bad heart". Pt planning on going to [facility] when she gets to [place] to establish care. Updated RN & MD. MD requesting CM obtain pt's medical records from [facility]; CM will need to follow up Sunday morning. MD also inquring if pt has any rehab days available; reports pt will need rehab at time of dc & possibly information on transitioning into hospice. LVM for Melly, at [facility] to discuss. CM will follow. Date Signed: 08/19/2017 05:45 PM Electronically Signed By:Opal Otto RN [facility] Progress Note CM Note CM Note Notes: 08/20/2017 Case Management Note Reviewed chart. Called Melly from [facility] and confirmed pt can return to [facility] upon d/c until family able to transport to [place]. Pt lives at [facility] under Medicaid and ene have therapies added under her Medicare benefits if needed. C2 Tactical Analysis Technician requesting records from [facility]. Case Management d/c poc: return to [facility]. Case Management to follow. Date Signed: 08/20/2017 12:01 PM Electronically Signed By:Linette Rg RN [facility] CM Progress Note CM Note CM Note Notes: 08/22/2017 Case Management Note Phone call from Melly at [facility]. Faxed updates to [facility] through [employer]. Case Management d/c poc: Return to [facility] with plans for son to drive to [place] september. Case Management to follow. Date Signed: 08/22/2017 02:15 PM Electronically Signed By:Linette Rg RN Case Management Discharge Plan Note Case Management Discharge Discharge Order Complete? Answers: Yes Patient to Obtain Answers: Other Notes: [facility] Medications Transportation Arranged Answers: Other Notes: [facility] Transport will Pick (Date 08/24/2017 02:30 PM & Time) Faxed Final Orders Answers: Yes Family Notified Answers: Yes Discharge Comments Notes: Patient discharged back to [facility]. Son Don notified - I also asked him to speak with patient who was resistant to discharge. I spoke with Melly at [facility] and asked that she make sure patient got a walker. Date Signed: 08/24/2017 01:57 PM Electronically Signed By:Apryl Celestin RN Intervention Information Intervention Type:*Incorrect Registration Date of Service:08/15/2017 11:48 AM Patient Type:Inpatient Staff Member:CHACE Pang Susan Hours: Discipline: Severity: Comment:
--- NOTE | 2017-08-24 15:34 | GDS ---
[f rep st] DISCHARGE SUMMARY DISCHARGE DIAGNOSES: 1. Hcxpo-dr-navfyop hypoxemic respiratory failure. 2. Lung cancer. 3. Spontaneous pneumothorax, status post chest tube with recurrence. 4. Deconditioning. 5. Bilateral airspace disease, felt likely secondary to reaction from immunotherapy for her cancer. 6. Chronic obstructive pulmonary disease. HOSPITAL COURSE: Please see admission history and physical by Dr. Leonel Garrido. The patient presented with increased work of breathing, right-sided chest pain, found to have a pneumothorax. C hest tube was placed. She had bilateral pulmonary infiltrates, that was felt secondary to a pneumonitis from nivolumab ther apy. She received 7 days of levofloxacin without any positive culture data. She did have a boothe v irus seen in her PCR panel. She also had her steroids increased. She is on 20 chronically as an out patient. The patient had done pretty well and had her chest tube removed but then on the , she was found h ave a recurrent right pneumothorax. She was managed with high-flow oxygen and no further chest tube. This is stable to decreased over size. Patient was stable on 6 L of oxygen, which is about her bas susy. She was discharged back to [facility]. She was seen by Palliative Care, who confirmed a d esire to return to [place], where she lives. /[id number]/MODL
== END 2017-08-24 14:43 | DRG 199 ==
LOC: EDUNIT# → INTOOBSV 04:27 → F2N 05:34 → OBSVTOIN 13:18 → F2W 15:58
PROVIDERS: ADMIT Student in an Organized Health Care Education/Training Program; ATTEND Internal Medicine
PROC: 0W9930Z Drainage of Right Pleural Cavity with Drainage Device, Percutaneous Approach (ICD-10-PCS; principal; 2017-08-15)
PROC: 5A09357 Assistance with Respiratory Ventilation, Less than 24 Consecutive Hours, Continuous Positive Airway Pressure (ICD-10-PCS; 2017-08-15)
DX: J93.83 Other pneumothorax (principal); J43.9 Emphysema, unspecified; J96.21 Acute and chronic respiratory failure with hypoxia; J84.89 Other specified interstitial pulmonary diseases; T45.1X5A Adverse effect of antineoplastic and immunosuppressive drugs, initial encounter; R53.81 Other malaise; C34.90 Malignant neoplasm of unspecified part of unspecified bronchus or lung; Z87.891 Personal history of nicotine dependence
CPT/HCPCS: 92610-GN; 96365; 97110-GP; 97116-GP; 97161-GP; 97165-GO; 97530-GO; 97530-GP; 97535-GO; G8978-GP-CK; G8979-GP-CJ; G8987-GO-CI; G8988-GO-CI; G8996-GN-CH; G8997-GN-CH; G8998-GN-CH; J0456; J0692; J0696; J1650; J2920; J2930; J3370; J7512; J7613; Q9967